=== PATIENT | male | born 1945 | race Caucasian/White ===

== ENCOUNTER 2023-05-13 10:03 | Inpatient (IN) ==
--- NOTE | 2023-05-13 10:27 | Emergency Department Note ---
History of Present Illness General Chief complaint: Fall Stated complaint: FALL Time Seen by Provider: 05/13/23 10:10 History of Present Illness 78-year-old male presents emergency department with reported fall last evening. Patient states that he fell around 3 AM last night he did not hit his head. Patient was unable to get up. His [id number] found him at approximately 9 AM on the floor. Reportedly was not acting appropriately. He has had multiple falls recently. Patient had severe weakness and was unable to get up. Patient's had a prior stroke with left-sided deficits he states he uses a cane at times. Patient denies any headache nausea vomiting abdominal pain chest pain shortness of breath. Patient's family states that he reportedly has not been taking his medications appropriately. Home Medications Medication Instructions Recorded Confirmed Type apixaban 5 mg tablet (Eliquis) 5 mg PO BID 08/24/22 08/24/22 History aspirin 81 mg tablet,delayed 81 mg PO DAILY 08/24/22 08/24/22 History release atorvastatin 80 mg tablet 80 mg PO HS 08/24/22 08/24/22 History cefdinir 300 mg capsule 300 mg PO Q12H 08/24/22 08/24/22 History insulin lispro 100 unit/mL 6 unit subcut TID 08/24/22 08/24/22 History subcutaneous solution metformin 500 mg tablet,extended 1,000 mg PO BID 08/24/22 08/24/22 History release 24 hr pantoprazole 40 mg tablet,delayed 40 mg PO DAILY 08/24/22 08/24/22 History release rosuvastatin 10 mg tablet 10 mg PO QAM 08/24/22 08/24/22 History sertraline 100 mg tablet 100 mg PO DAILY 08/24/22 08/24/22 History Allergies Allergy/AdvReac Type Severity Reaction Status Date / Time No Known Allergies Allergy Unverified 08/24/22 15:39 Past Med/Surg History Social History Smoking Status: Never smoker Feels Safe at Home: Yes Immunizations: Past medical history includes CVA, diabetes Review of Systems A total of 10 systems reviewed and were otherwise negative Constitutional: + weakness Physical Exam Vital Signs Vital Signs - 24 hr 05/13/23 10:06 05/13/23 10:17 05/13/23 10:17 Temperature 37.1 C Temperature Source Oral Pulse Rate 99 H Pulse Rate [Apical] Pulse Rhythm Regular Pulse Strength Normal Respiratory Rate 20 Respiratory Effort / Characteristics Non-Labored Respiratory Depth Normal Respiratory Pattern Regular Blood Pressure [Left Arm] 116/66 Blood Pressure Mean [Left Arm] 82 Blood Pressure Position [Left Arm] Semi-fowlers Pulse Oximetry 94 94 Oxygen Delivery Method Room Air Room Air Sepsis Recent Fever Within 48 Hours No Sepsis New/Unexplained Change in Mental Status N/A Sepsis Action Taken by Nursing No Action Required 05/13/23 11:25 05/13/23 12:11 05/13/23 12:13 Temperature Temperature Source Pulse Rate 90 Pulse Rate [Apical] 88 90 Pulse Rhythm Pulse Strength Respiratory Rate 21 Respiratory Effort / Characteristics Respiratory Depth Respiratory Pattern Blood Pressure [Left Arm] 139/97 115/66 Blood Pressure Mean [Left Arm] 111 82 Blood Pressure Position [Left Arm] Pulse Oximetry 94 95 Oxygen Delivery Method Room Air Room Air Sepsis Recent Fever Within 48 Hours Sepsis New/Unexplained Change in Mental Status Sepsis Action Taken by Nursing GENERAL: Patient is awake alert in no acute distress patient is resting comfo rtably and showing no signs of anxiety EYES: The conjunctivae are clear. The pupils are round and reactive. Head exam reveals no obvious trauma EARS, NOSE, MOUTH AND THROAT: The nose is without any evidence of any deformity. Mucous membranes are moist. Tongue is midline. NECK: The neck is nontender and supple. RESPIRATORY: Normal respiratory effort is noted there is no evidence of wheezing rhonchi or rales CARDIOVASCULAR: Regular rate and rhythm noted there no murmurs rubs or gallops normal S1 normal S2. GASTROINTESTINAL: The abdomen is soft. Abdomen is nontender. PELVIS: The Pelvis is stable. No tenderness to palpation is noted. BACK: No midline tenderness or or step-off noted range of motion in flexion extension as well as rotation no signs of muscle spasm noted MUSCULOSKELETAL/EXTREMITIES: There is no evidence of gross deformity full range of motion is noted in the hips and shoulders. SKIN: There is no obvious evidence of any rash. There are no petechiae, pallor or cyanosis noted. NEUROLOGIC: Patient is awake alert and oriented x3 strength is symmetric Course Reevaluation(s) Reevaluation #1: Patient was started on IV fluids, given IV Rocephin Time: 13:10 Consultations Consultation #1: Case was discussed with the [facility] hospitalist for admission Time: 13:10 Administered Medications Discontinued Medications Sodium Chloride (Nss 1000ml) 1,000 mls @ 999 mls/hr IV .Q1H1M ONE Stop: 05/13/23 11:49 Last Infusion: 05/13/23 12:56 Dose: 0 mls/hr Documented By: Admin: 05/13/23 11:32 Dose: 999 mls/hr Documented By: Infusion: 05/13/23 11:32 Dose: 999 mls/hr Documented By: Admin: 05/13/23 11:12 Dose: 999 mls/hr Documented By: ML Ceftriaxone Sodium (Rocephin) 2,000 mg in 70 mls @ 140 mls/hr IV NOW STA Stop: 05/13/23 11:54 Last Infusion: 05/13/23 12:12 Dose: 0 mls/hr Documented By: Admin: 05/13/23 11:33 Dose: 140 mls/hr Documented By: ML Sodium Chloride (Nss 1000ml) 2,000 mls @ 999 mls/hr IV .Q2H1M ONE Stop: 05/13/23 13:27 Last Infusion: 05/13/23 13:42 Dose: 0 mls/hr Documented By: Admin: 05/13/23 11:33 Dose: 999 mls/hr Documented By: ML Critical Care Time Critical Care Time: Yes Total Critical Care Time: 35 I have personally spent greater than 35 minutes of critical care time in the direct management of this patient. This includes bedside care, interpretation of diagnostic studies, and testing, discussion with consultants, patient, and family members, and other required patient management activities. These minutes are in excess of all separately billable procedures. Medical Decision Making Medical Records Attestation: I reviewed the patient's medical records. Home Medications Current Medication List: was personally reviewed by me Laboratory Data Attestation: I reviewed the patient's lab results. Patient has an elevated white blood cell count elevated blood sugar and elevated lactate concerning for sepsis, a positive urinalysis 05/13/23 10:15 05/13/23 10:15 Lab Results 05/13/23 05/13/23 05/13/23 Range/Units 10:15 10:15 10:15 WBC 22.92 H (4.8-10.8) K/ul RBC 5.26 (4.70-6.10) M/uL Hgb 16.3 (14.0-18.0) g/dl Hct 45.5 (42.0-52.0) % MCV 86.5 (80.0-100.0) fL MCH 31.0 (25.0-34.0) pg MCHC 35.8 (32.0-36.0) g/dL RDW Std Deviation 38.0 (36.4-46.3) fL RDW Coeff of Camila 12.1 (11.5-14.5) % Plt Count 236 (130-400) K/uL MPV 10.7 (9.4-12.4) fL Immature Gran % (Auto) 2.2 % Neut % (Auto) 85.1 % Lymph % (Auto) 4.1 % [place] % (Auto) 8.2 % Eos % (Auto) 0.1 % Baso % (Auto) 0.3 % Neut # (Auto) 19.47 H (1.40-6.50) K/uL Lymph # (Auto) 0.94 L (1.2-3.4) K/uL [place] # (Auto) 1.89 H (0.11-0.59) K/uL Eos # (Auto) 0.03 (0-0.50) K/uL Baso # (Auto) 0.08 (0-0.2) K/uL Immature Gran # (Auto) 0.51 H (0.01-0.20) K/uL PT 13.0 H (9.0-12.0) Seconds INR 1.2 H (0.9-1.1) Sodium 135 L (136-145) mmol/L Potassium 4.4 (3.5-5.1) mmol/L Chloride 99 (98-107) mmol/L Carbon Dioxide 22 (21-32) mmol/L Anion Gap 14 H (3-11) BUN 22 (6-23) mg/dl Creatinine 1.29 (0.6-1.4) mg/dl Est Cr Clr Drug Dosing 48.7 ml/min Est GFR ( Amer) 61.1 ml/min Est GFR (Non-Af Amer) 52.8 ml/min BUN/Creatinine Ratio 17.1 (10-20) Glucose 327 H* (70-99(Fasting)) mg/dl Lactate (0.4-2.0) mmol/L Calcium 10.0 (8.6-10.3) mg/dl Magnesium 1.7 (1.7-2.4) mg/dl Total Bilirubin 2.2 H (0.2-1.0) mg/dl AST 18 (13-39) U/L ALT 14 (7-52) U/L Alkaline Phosphatase 87 (34-104) U/L Total Creatine Kinase 112 (30-223) U/L Troponin I High Sens 28.4 H (0-20) pg/ml Total Protein 7.1 (6.0-8.3) gm/dl Albumin 4.4 (3.4-5.0) gm/dl Globulin 2.7 (2.5-4.0) gm/dl Albumin/Globulin Ratio 1.6 (0.9-2) TSH (0.300-4.500) uIu/ml Urine Color Urine Appearance (Clear) Urine pH (4.5-7.5) Ur Specific [place] (1.000-1.030) Urine Protein (Negative) Urine Glucose (UA) (Negative) Urine Ketones (Negative) Urine Blood (Negative) Urine Nitrite (Negative) Urine Bilirubin (Negative) Urine Urobilinogen (Negative) Ur Leukocyte Esterase (Negative) Urine WBC (Auto) (0-5) /hpf Urine RBC (Auto) (0-4) /hpf U Hyaline Cast (Auto) (0-5) /lpf U Epithel Cells (Auto) (0-5) /lpf Urine Bacteria (Auto) (Negative) Urine Yeast 05/13/23 05/13/23 05/13/23 Range/Units 10:15 10:30 11:07 WBC (4.8-10.8) K/ul RBC (4.70-6.10) M/uL Hgb (14.0-18.0) g/dl Hct (42.0-52.0) % MCV (80.0-100.0) fL MCH (25.0-34.0) pg MCHC (32.0-36.0) g/dL RDW Std Deviation (36.4-46.3) fL RDW Coeff of Camila (11.5-14.5) % Plt Count (130-400) K/uL MPV (9.4-12.4) fL Immature Gran % (Auto) % Neut % (Auto) % Lymph % (Auto) % [place] % (Auto) % Eos % (Auto) % Baso % (Auto) % Neut # (Auto) (1.40-6.50) K/uL Lymph # (Auto) (1.2-3.4) K/uL [place] # (Auto) (0.11-0.59) K/uL Eos # (Auto) (0-0.50) K/uL Baso # (Auto) (0-0.2) K/uL Immature Gran # (Auto) (0.01-0.20) K/uL PT (9.0-12.0) Seconds INR (0.9-1.1) Sodium (136-145) mmol/L Potassium (3.5-5.1) mmol/L Chloride (98-107) mmol/L Carbon Dioxide (21-32) mmol/L Anion Gap (3-11) BUN (6-23) mg/dl Creatinine (0.6-1.4) mg/dl Est Cr Clr Drug Dosing ml/min Est GFR ( Amer) ml/min Est GFR (Non-Af Amer) ml/min BUN/Creatinine Ratio (10-20) Glucose (70-99(Fasting)) mg/dl Lactate 4.0 H* (0.4-2.0) mmol/L Calcium (8.6-10.3) mg/dl Magnesium (1.7-2.4) mg/dl Total Bilirubin (0.2-1.0) mg/dl AST (13-39) U/L ALT (7-52) U/L Alkaline Phosphatase (34-104) U/L Total Creatine Kinase (30-223) U/L Troponin I High Sens (0-20) pg/ml Total Protein (6.0-8.3) gm/dl Albumin (3.4-5.0) gm/dl Globulin (2.5-4.0) gm/dl Albumin/Globulin Ratio (0.9-2) TSH 1.072 (0.300-4.500) uIu/ml Urine Color Yellow Urine Appearance Turbid A (Clear) Urine pH 5.5 (4.5-7.5) Ur Specific [place] 1.023 (1.000-1.030) Urine Protein 2+ H (Negative) Urine Glucose (UA) 3+ H (Negative) Urine Ketones 1+ H (Negative) Urine Blood 2+ H (Negative) Urine Nitrite Positive A (Negative) Urine Bilirubin Negative (Negative) Urine Urobilinogen Negative (Negative) Ur Leukocyte Esterase 2+ H (Negative) Urine WBC (Auto) >30 H (0-5) /hpf Urine RBC (Auto) 10-30 H (0-4) /hpf U Hyaline Cast (Auto) 0 (0-5) /lpf U Epithel Cells (Auto) 10-20 H (0-5) /lpf Urine Bacteria (Auto) 4+ H (Negative) Urine Yeast Not Reportable 05/13/23 Range/Units 13:00 WBC (4.8-10.8) K/ul RBC (4.70-6.10) M/uL Hgb (14.0-18.0) g/dl Hct (42.0-52.0) % MCV (80.0-100.0) fL MCH (25.0-34.0) pg MCHC (32.0-36.0) g/dL RDW Std Deviation (36.4-46.3) fL RDW Coeff of Camila (11.5-14.5) % Plt Count (130-400) K/uL MPV (9.4-12.4) fL Immature Gran % (Auto) % Neut % (Auto) % Lymph % (Auto) % [place] % (Auto) % Eos % (Auto) % Baso % (Auto) % Neut # (Auto) (1.40-6.50) K/uL Lymph # (Auto) (1.2-3.4) K/uL [place] # (Auto) (0.11-0.59) K/uL Eos # (Auto) (0-0.50) K/uL Baso # (Auto) (0-0.2) K/uL Immature Gran # (Auto) (0.01-0.20) K/uL PT (9.0-12.0) Seconds INR (0.9-1.1) Sodium (136-145) mmol/L Potassium (3.5-5.1) mmol/L Chloride (98-107) mmol/L Carbon Dioxide (21-32) mmol/L Anion Gap (3-11) BUN (6-23) mg/dl Creatinine (0.6-1.4) mg/dl Est Cr Clr Drug Dosing ml/min Est GFR ( Amer) ml/min Est GFR (Non-Af Amer) ml/min BUN/Creatinine Ratio (10-20) Glucose (70-99(Fasting)) mg/dl Lactate 2.5 H* (0.4-2.0) mmol/L Calcium (8.6-10.3) mg/dl Magnesium (1.7-2.4) mg/dl Total Bilirubin (0.2-1.0) mg/dl AST (13-39) U/L ALT (7-52) U/L Alkaline Phosphatase (34-104) U/L Total Creatine Kinase (30-223) U/L Troponin I High Sens (0-20) pg/ml Total Protein (6.0-8.3) gm/dl Albumin (3.4-5.0) gm/dl Globulin (2.5-4.0) gm/dl Albumin/Globulin Ratio (0.9-2) TSH (0.300-4.500) uIu/ml Urine Color Urine Appearance (Clear) Urine pH (4.5-7.5) Ur Specific [place] (1.000-1.030) Urine Protein (Negative) Urine Glucose (UA) (Negative) Urine Ketones (Negative) Urine Blood (Negative) Urine Nitrite (Negative) Urine Bilirubin (Negative) Urine Urobilinogen (Negative) Ur Leukocyte Esterase (Negative) Urine WBC (Auto) (0-5) /hpf Urine RBC (Auto) (0-4) /hpf U Hyaline Cast (Auto) (0-5) /lpf U Epithel Cells (Auto) (0-5) /lpf Urine Bacteria (Auto) (Negative) Urine Yeast Imaging Data Attestation: I personally reviewed and interpreted this imaging study as follows: My Impression: Chest x-ray interpreted by me as negative for infiltrate CT of the brain per my interpretation negative intracranial hemorrhage Radiologist's Impression: Chest X-Ray 05/13/23 10:13 XR chest 1V portable CLINICAL HISTORY: weakness COMPARISON STUDY: No previous studies for comparison. FINDINGS: There is mild elevation of the left hemidiaphragm. Linear right basilar opacity favors atelectasis. There is no pneumothorax or pleural effusion. Cardiac size is normal. Mediastinal contours are normal. There is no evidence for pulmonary edema. IMPRESSION: No acute cardiopulmonary findings. ACT 112: Negative or not required by law. Electronically signed by: Patel Aldrich M.D. 05/13/2023 10:[address] 05/13/23 10:13 CT OF THE HEAD WITHOUT CONTRAST CLINICAL HISTORY: Fall. COMPARISON STUDY: No previous studies for comparison. CT DOSE: 625.80 mGy.cm TECHNIQUE: Helical axial images of the head were obtained without IV contrast. Automated exposure control was utilized for the study. A dose lowering technique was utilized adhering to the principles of ALARA. FINDINGS: No acute intracranial hemorrhage, midline shift or mass effect is present. Mild ventricular dilatation is due to atrophy. White matter hypodensity suggests small vessel disease. Encephalomalacia within the superior right frontal lobe favors an old infarct. The basal cisterns are patent. No extra- axial collections are present. There are no findings to suggest acute dural sinus thrombosis or acute territorial infarct. No significant calvarial abnormalities are present. Visualized portions of the sinuses and mastoid air cells are clear. IMPRESSION: 1. No acute intracranial findings. Small focus of encephalomalacia within the superior right frontal lobe which favors an old infarct. 2. No calvarial fracture. ACT 112: Negative or not required by law. Electronically signed by: Patel Aldrich M.D. 05/13/2023 12:21 PM Abdomen/Pelvis CT 05/13/23 11:[address] WITHOUT CONTRAST CT DOSE: 987.71 mGy.cm HISTORY: Acute generalized abdominal pain abd pain TECHNIQUE: Multiaxial CT images of the abdomen and pelvis were performed without contrast. A dose lowering technique was utilized adhering to the principles of ALARA. COMPARISON STUDY: None. FINDINGS: Coronary artery calcifications. Mild left hemidiaphragmatic elevation. Subsegmental left basilar atelectasis versus scarring. No pneumatosis or pneumoperitoneum. The unenhanced spleen, pancreas and adrenal glands are unremarkable. The gallbladder and liver are within normal limits. Mild cortical thinning of the kidneys. Bilateral perinephric stranding with mild bilateral hydroureteronephrosis. No urolithiasis. Urinary bladder wall thickening which evaluation in diverticula. Periventricular stranding. Prostatomegaly with mild periprosthetic inflammation. Atherosclerosis of the aorta. No lymphadenopathy identified. Tiny hiatal hernia. There is no bowel obstruction or bowel wall thickening identified. Colonic diverticulosis. Mild to moderate colonic fecal retention. Normal appendix. Tiny fat filled umbilical hernia. No acute fracture. IMPRESSION: 1. Prostatomegaly with evidence of chronic bladder outlet obstruction. Correlate with urinalysis to exclude superimposed cystitis. 2. Mild bilateral hydroureteronephrosis is likely secondary to the outlet obstruction. Ascending infection however could appear similarly. 3. No urolith. 4. No bowel obstruction or bowel wall thickening. 5. Additional findings as above. ACT 112: Negative or not required by law. The above report was generated using voice recognition software. It may contain grammatical, syntax or spelling errors. Electronically signed by: Bulmaro Hinojosa M.D. 05/13/2023 12:50 PM ECG Data Attestation: I personally reviewed and interpreted this ECG as follows: Additional Comments: EKG interpreted by me sinus rhythm rate of [address]-T change occasional PVCs no obvious ST segment elevation or depression normal axis Telemetry was ordered by me, interpreted as normal sinus rhythm rate of 99 MDM Narrative Medical decision making differential diagnosis includes CVA, intracranial hemorrhage, metabolic derangement, electrolyte abnormality, deconditioning Plan is to check labs, EKG, CT External medical records were reviewed by EMS medical report was reviewed by Patient has an elevated lactate elevated white blood cell count and positive urinalysis, patient was started on 3 L of IV fluid due to elevated lactate of 4, patient was given empiric Rocephin 2 g, case was discussed with the hospitalist for admission Patient will be admitted for confusion, falls, severe sepsis Impression & Plan Sepsis, Acute UTI (urinary tract infection), Fall, Acute confusion Discharge Plan Visit Data Patient Disposition: Admitted As Inpatient Forms Stand Alone Forms: My [facility] [employer] Prescriptions Prescriptions: No Action aspirin 81 mg tablet,delayed release (DR/EC) 81 mg PO DAILY atorvastatin 80 mg tablet 80 mg PO HS sertraline 100 mg tablet 100 mg PO DAILY pantoprazole 40 mg tablet,delayed release (DR/EC) 40 mg PO DAILY insulin lispro 100 unit/mL solution 6 unit subcut TID Rx Instructions: Before meals cefdinir 300 mg capsule 300 mg PO Q12H Rx Instructions: X 15 days started 08/11/22 metformin 500 mg tablet extended release 24 hr 1,000 mg PO BID rosuvastatin 10 mg tablet 10 mg PO QAM Eliquis 5 mg tablet 5 mg PO BID Referrals Referrals: Ben Fry MD [Primary Care Provider] -
[2023-05-13 10:48] LABS: Basophils # (auto) 0.08 K/uL (0-0.2); Basophils % (auto) 0.3 %; Eosinophils # (auto) 0.03 K/uL (0-0.50); Eosinophils % (auto) 0.1 %; Hematocrit (blood only) 45.5 % (42.0-52.0); Hemoglobin 16.3 g/dl (14.0-18.0); Immature Granulocytes # (auto) 0.51 K/uL (0.01-0.20); Immature Granulocytes % (auto) 2.2 %; Lymphocytes # (auto) 0.94 K/uL (1.2-3.4); Lymphocytes % (auto) 4.1 %; Mean Corpuscular Hgb Conc 35.8 g/dL (32.0-36.0); Mean Corpuscular Volume 86.5 fL (80.0-100.0); Mean Platelet Volume 10.7 fL (9.4-12.4); Monocytes # (auto) 1.89 K/uL (0.11-0.59); Monocytes % (auto) 8.2 %; Neutrophils # (auto) 19.47 K/uL (1.40-6.50); Neutrophils % (auto) 85.1 %; Platelet Count 236 K/uL (130-400); RDW Coefficient of Variation 12.1 % (11.5-14.5); Red Blood Count 5.26 M/uL (4.70-6.10); White Blood Count 22.92 K/ul (4.8-10.8)
[2023-05-13 10:49] LABS: Appearance Urine Turbid (Clear); Bacteria Urine Automated 4+ (Negative); Bilirubin Urine Negative (Negative); Blood Urine 2+ (Negative); Cast Urine Automated 0 /lpf (0-5); Color Urine Yellow; Glucose Urine UA 3+ (Negative); Ketones Urine 1+ (Negative); Leukocyte Esterase Urine 2+ (Negative); Nitrite Urine Positive (Negative); Protein Urine 2+ (Negative); Specific Gravity Urine 1.023 (1.000-1.030); Urobilinogen Urine Negative (Negative); WBC Urine Automated >30 /hpf (0-5); pH Urine 5.5 (4.5-7.5)
--- NOTE | 2023-05-13 10:56 | XRay Report ---
XR chest 1V portable CLINICAL HISTORY: weakness COMPARISON STUDY: No previous studies for comparison. FINDINGS: There is mild elevation of the left hemidiaphragm. Linear right basilar opacity favors atel ectasis. There is no pneumothorax or pleural effusion. Cardiac size is normal. Mediastinal contours a re normal. There is no evidence for pulmonary edema. IMPRESSION: No acute cardiopulmonary findings. ACT 112: Negative or not required by law. Electronically signed by: Patel Aldrich M.D. 05/13/2023 10:55 AM
[2023-05-13] MEDS: SODIUM CHLORIDE 0.9% 1000ML 1,000 ML IV ONE ×2 (11:12→11:32)
[2023-05-13 11:13] LABS: INR 1.2 (0.9-1.1)
[2023-05-13 11:18] LABS: Albumin Globulin Ratio 1.6 (0.9-2); Albumin Level 4.4 gm/dl (3.4-5.0); BUN Creatinine Ratio 17.1 (10-20); Bilirubin,Total 2.2 mg/dl (0.2-1.0); Creatinine Clr Calc Pharmacy 48.7 ml/min; Est GFR (African American) 61.1 ml/min; Est GFR (Non-African American) 52.8 ml/min; Globulin 2.7 gm/dl (2.5-4.0); Magnesium 1.7 mg/dl (1.7-2.4); Potassium 4.4 mmol/L (3.5-5.1); Total Protein 7.1 gm/dl (6.0-8.3); Troponin I High Sensitivity 28.4 pg/ml (0-20)
--- NOTE | 2023-05-13 11:20 | Electrocardiogram Report ---
Test Reason : Blood Pressure : / mmHG Vent. Rate : 099 BPM Atrial Rate : 099 BPM P-R Int : 144 ms QRS Dur : 070 ms QT Int : 328 ms P-R-T Axes : 077 043 260 degrees QTc Int : 420 ms Sinus rhythm with occasional Premature ventricular complexes and Fusion complexes Abnormal ECG No previous ECGs available Confirmed by Franco Farooq ([id number]) on 05/13/2023 11:19:56 AM Referred By: Confirmed By:Franco Farooq
[2023-05-13] MEDS ORDERED: cefTRIAXone SODIUM 2,000 MG/70 ML BAG IV STA (11:25)
[2023-05-13] MEDS ORDERED: SODIUM CHLORIDE 0.9% 1000ML 2,000 ML IV ONE (11:27)
--- NOTE | 2023-05-13 12:22 | CT Scan Report ---
CT OF THE HEAD WITHOUT CONTRAST CLINICAL HISTORY: Fall. COMPARISON STUDY: No previous studies for comparison. CT DOSE: 625.80 mGy.cm TECHNIQUE: Helical axial images of the head were obtained without IV contrast. Automated exposure con trol was utilized for the study. A dose lowering technique was utilized adhering to the principles o f ALARA. FINDINGS: No acute intracranial hemorrhage, midline shift or mass effect is present. Mild ventricular dilatation is due to atrophy. White matter hypodensity suggests small vessel disease. Encephalomalac ia within the superior right frontal lobe favors an old infarct. The basal cisterns are patent. No ex tra-axial collections are present. There are no findings to suggest acute dural sinus thrombosis or a cute territorial infarct. No significant calvarial abnormalities are present. Visualized portions of the sinuses and mastoid air cells are clear. IMPRESSION: 1. No acute intracranial findings. Small focus of encephalomalacia within the superior right frontal lobe which favors an old infarct. 2. No calvarial fracture. ACT 112: Negative or not required by law. Electronically signed by: Patel Aldrich M.D. 05/13/2023 12:21 PM
--- NOTE | 2023-05-13 12:52 | CT Scan Report ---
ABDOMEN AND PELVIS CT WITHOUT CONTRAST CT DOSE: 987.71 mGy.cm HISTORY: Acute generalized abdominal pain abd pain TECHNIQUE: Multiaxial CT images of the abdomen and pelvis were performed without contrast. A dose lo wering technique was utilized adhering to the principles of ALARA. COMPARISON STUDY: None. FINDINGS: Coronary artery calcifications. Mild left hemidiaphragmatic elevation. Subsegmental left ba silar atelectasis versus scarring. No pneumatosis or pneumoperitoneum. The unenhanced spleen, pancrea s and adrenal glands are unremarkable. The gallbladder and liver are within normal limits. Mild cortical thinning of the kidneys. Bilateral perinephric stranding with mild bilateral hydrourete ronephrosis. No urolithiasis. Urinary bladder wall thickening which evaluation in diverticula. Perive ntricular stranding. Prostatomegaly with mild periprosthetic inflammation. Atherosclerosis of the aor ta. No lymphadenopathy identified. Tiny hiatal hernia. There is no bowel obstruction or bowel wall thickening identified. Colonic divert iculosis. Mild to moderate colonic fecal retention. Normal appendix. Tiny fat filled umbilical hernia . No acute fracture. IMPRESSION: 1. Prostatomegaly with evidence of chronic bladder outlet obstruction. Correlate with urinalysis to e xclude superimposed cystitis. 2. Mild bilateral hydroureteronephrosis is likely secondary to the outlet obstruction. Ascending infe ction however could appear similarly. 3. No urolith. 4. No bowel obstruction or bowel wall thickening. 5. Additional findings as above. ACT 112: Negative or not required by law. The above report was generated using voice recognition software. It may contain grammatical, syntax o r spelling errors. Electronically signed by: Bulmaro Hinojosa M.D. 05/13/2023 12:50 PM
--- NOTE | 2023-05-13 14:10 | History & Physical Report ---
Date of Service May 13, 2023 Assessment & Plan (1) Sepsis: Plan: Presented with increasing weakness mild confusion and noted to have increased white count, increased lactate and UTI on admission Receiving intravenous fluid Blood and urine cultures were sent Received ceftriaxone 2 g in the ER and which will be continued Lactate level has been improving and will monitor Monitor in medical telemetry unit Elevated troponin Initial troponin is minimally high at 28, second set went up to more than 80 will do third set Think is due to sepsis and doubt any ACS (2) Acute UTI (urinary tract infection): Plan: UTI causing sepsis and weakness (3) Fall: (4) Left hemiparesis: Plan: 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 No new symptoms of a stroke No significant injury except has general weakness CT scan of the head is negative for any acute findings We will get PT and OT evaluation (5) Diabetes type 2, controlled: Plan: On metformin We will check hemoglobin A1c Hold metformin for now Continue with SSI (6) HTN (hypertension): Plan: Remains stable and will continue current medications (7) Hyperlipidemia: Plan: Continue statin (8) Atrial fibrillation: Plan: Rate is controlled We will continue current medications and Eliquis DVT prophylaxis Eliquis CODE STATUS Full History of Present Illness Chief Complaint: Weakness with fall early this morning Primary Care Provider: Ben Fry MD He is a 78-year-old male with significant past medical history of stroke with left hemiparesis, type 2 diabetes, atrial fibrillation, cerebrovascular disease status post stroke, hyperlipidemia, hypertension, apparently has had a fall earlier this morning while he was going to the bathroom. He does have weakness involving the left side from prior stroke and he has been feeling weaker for the last few days. He fell when he tried to turn sharply and he was not able to get up by himself until he was found on the floor by his son in the morning was brought into the emergency room. Denies any fever and or chills, any dizziness, palpitation or shortness of breath, any increasing numbness or tingling involving any of the extremities,. any problem with urine or bowel habit. Has been feeling much better in the emergency room and was noted to have increased white count with UA suggestive of infection and increased lactic acid. He was started with intravenous fluid and IV antibiotic with ceftriaxone and was admitted to medical floor for continuation of care. Allergies Allergy/AdvReac Type Severity Reaction Status Date / Time No Known Allergies Allergy Unverified 08/24/22 15:39 Home Medications Medication Instructions Recorded Confirmed Type apixaban 5 mg tablet (Eliquis) 5 mg PO BID 08/24/22 08/24/22 History aspirin 81 mg tablet,delayed 81 mg PO DAILY 08/24/22 08/24/22 History release metformin 500 mg tablet,extended 1,000 mg PO BID 08/24/22 05/13/23 History release 24 hr pantoprazole 40 mg tablet,delayed 40 mg PO DAILY 08/24/22 08/24/22 History release sertraline 100 mg tablet 100 mg PO DAILY 08/24/22 08/24/22 History atorvastatin 40 mg tablet 40 mg PO QAM 05/13/23 05/13/23 History duloxetine 30 mg capsule,delayed 30 mg PO QAM 05/13/23 05/13/23 History release insulin glargine 100 unit/mL (3 20 unit subcut QAM 05/13/23 05/13/23 History mL) subcutaneous pen (Lantus Solostar U-100 Insulin) Past Med/Surg History Social History Smoking Status: Never smoker Feels Safe at Home: Yes Review of Systems Review of Systems: All systems reviewed and are unremarkable except as in H&P Neurologic: History of a stroke with left hemiparesis and generally weak recently Physical Exam Physical Exam: Lying in bed comfortably Constitutional: well developed, well nourished and + ill appearing Eyes: PERRL, conjunctivae normal, anicteric sclerae ENMT: external ear and nose normal, oropharynx normal Neck: trachea midline, no thyromegaly Respiratory: no respiratory distress Auscultation: lungs clear to auscultation bilaterally Cardiovascular: Rate/Rhythm: regular rate and regular rhythm; not tachycardic Heart Sounds: normal S1, normal S2 and + murmur Extremities: no edema Gastrointestinal (Abdomen): Inspection/Auscultation: normal bowel sounds; abdomen not distended Percussion/Palpation: + abdomen tender (Mildly tender hypogastrium) and abdomen soft Musculoskeletal: No acute arthritis involving any of the joint Neurologic: Alert, awake and oriented x3. Generally weak and may have more weakness involving left upper extremity Results & Data Results & Data Vital Signs (Past 12 Hours) Vital Signs Temp Pulse Pulse Resp BP Pulse Ox O2 Del Method 05/13/23 12:13 90 05/13/23 12:11 90 21 115/66 95 Room Air 05/13/23 11:25 88 139/97 94 Room Air 05/13/23 10:17 94 Room Air 05/13/23 10:17 116/66 05/13/23 10:06 37.1 C 99 H 20 94 Room Air Laboratory Results Short CBC 05/13/23 Range/Units 10:15 WBC 22.92 H (4.8-10.8) K/ul Hgb 16.3 (14.0-18.0) g/dl Hct 45.5 (42.0-52.0) % Plt Count 236 (130-400) K/uL BMP 05/13/23 10:15 Sodium 135 L Potassium 4.4 Chloride 99 Carbon Dioxide 22 BUN 22 Creatinine 1.29 Glucose 327 H* Calcium 10.0 Cardiac Enzymes 05/13/23 Range/Units 10:15 Total Creatine Kinase 112 (30-223) U/L Liver Function 05/13/23 Range/Units 10:15 Total Bilirubin 2.2 H (0.2-1.0) mg/dl AST 18 (13-39) U/L ALT 14 (7-52) U/L Alkaline Phosphatase 87 (34-104) U/L Albumin 4.4 (3.4-5.0) gm/dl Urine 05/13/23 Range/Units 10:30 Urine Color Yellow Urine Appearance Turbid A (Clear) Urine pH 5.5 (4.5-7.5) Ur Specific [place] 1.023 (1.000-1.030) Urine Protein 2+ H (Negative) Urine Glucose (UA) 3+ H (Negative) Medications Administered Current Inpatient Medications Ceftriaxone Sodium 2,000 mg/ (Dextrose) 70 mls @ 100 mls/hr IV Q24H [facility]; Protocol Stop: 05/18/23 13:44 Code Status & VTE Plan VTE Prophylaxis Plan VTE Prophylaxis will be ordered: Yes
[2023-05-13] MEDS ORDERED: DEXTROSE 50% 50 ML SYRINGE IV PRN (14:30)
[2023-05-13] MEDS ORDERED: GLUCAGON FOR INJ 1 MG VIAL IM PRN (14:30)
[2023-05-13] MEDS ORDERED: GLUCOSE 10 TAB/TUBE PO PRN (14:30)
[2023-05-13] MEDS ORDERED: GLUCOSE 40% GEL 15 GM TUBE PO PRN (14:30)
[2023-05-13] MEDS ORDERED: CARBOHYDRATES FOR HYPOGLYCEMIA PO PRN (14:30)
[2023-05-13] MEDS: INSULIN ASPART PER UNIT CHARGE SC SCH ×2 (16:46→22:45)
[2023-05-13] MEDS ORDERED: NON-FORMULARY MEDICATION (Insulin Lispro 100 unit/mL solution) SQ SCH (16:48)
[2023-05-13] MEDS: ASPIRIN 81 MG ECTAB PO SCH (18:16)
[2023-05-13] MEDS: SODIUM CHLORIDE 0.9% 1000ML 1,000 ML IV SCH (18:16)
[2023-05-13] MEDS: PANTOprazole 40 MG TAB PO SCH (18:16)
[2023-05-13] MEDS: APIXABAN 5 MG TABLET PO SCH (21:10)
[2023-05-13] MEDS: ATORVASTATIN 40 MG TAB PO SCH (21:10)
[2023-05-14] MEDS: SODIUM CHLORIDE 0.9% 1000ML 1,000 ML IV SCH (02:57)
[2023-05-14] MEDS ORDERED: PNEUMOCOCCAL Polysaccharide Vaccine 25mcg/0.5mL vial/Syr IM ONE (04:45)
[2023-05-14 08:01] LABS: Estimated Average Glucose 246 mg/dl; Hemoglobin A1C 10.2 % (4.5-5.6)
[2023-05-14] MEDS: ASPIRIN 81 MG ECTAB PO SCH (08:06)
[2023-05-14] MEDS: SERTRALINE HCL 100 MG TABLET PO SCH (08:06)
[2023-05-14] MEDS: cefTRIAXone SODIUM 2,000 MG in DEXTROSE 5% 50 ML IV SCH (08:06)
[2023-05-14] MEDS: PANTOprazole 40 MG TAB PO SCH (08:06)
[2023-05-14] MEDS: APIXABAN 5 MG TABLET PO SCH ×2 (08:06→22:06)
[2023-05-14 08:09] LABS: BUN Creatinine Ratio 16.7 (10-20); Calcium 8.4 mg/dl (8.6-10.3); Creatinine Clr Calc Pharmacy 65.5 ml/min; Est GFR (African American) 87.4 ml/min; Est GFR (Non-African American) 75.4 ml/min; Potassium 3.9 mmol/L (3.5-5.1)
[2023-05-14] MEDS: INSULIN ASPART PER UNIT CHARGE SC SCH ×4 (08:12→22:07)
[2023-05-14 08:56] LABS: Basophils # (auto) 0.08 K/uL (0-0.2); Basophils % (auto) 0.5 %; Eosinophils % (auto) 1.3 %; Hematocrit (blood only) 36.8 % (42.0-52.0); Hemoglobin 13.2 g/dl (14.0-18.0); Immature Granulocytes # (auto) 0.08 K/uL (0.01-0.20); Immature Granulocytes % (auto) 0.5 %; Lymphocytes # (auto) 1.81 K/uL (1.2-3.4); Lymphocytes % (auto) 11.4 %; Mean Corpuscular Hemoglobin 31.1 pg (25.0-34.0); Mean Corpuscular Hgb Conc 35.9 g/dL (32.0-36.0); Mean Corpuscular Volume 86.6 fL (80.0-100.0); Mean Platelet Volume 10.9 fL (9.4-12.4); Monocytes # (auto) 1.39 K/uL (0.11-0.59); Monocytes % (auto) 8.8 %; Neutrophils # (auto) 12.32 K/uL (1.40-6.50); Neutrophils % (auto) 77.5 %; Platelet Count 154 K/uL (130-400); RDW Coefficient of Variation 12.2 % (11.5-14.5); RDW Standard Deviation 38.6 fL (36.4-46.3); Red Blood Count 4.25 M/uL (4.70-6.10); White Blood Count 15.88 K/ul (4.8-10.8)
[2023-05-14] MEDS ORDERED: LANTUS PER UNIT CHARGE SC SCH ×2 (09:00→16:30)
[2023-05-14] MEDS ORDERED: ROSUVASTATIN CALCIUM 10 MG TAB PO SCH (09:00)
--- NOTE | 2023-05-14 14:01 | Urology Consultation ---
Date of Consultation May 14, 2023 Assessment & Plan (1) Acute UTI (urinary tract infection): (2) Urinary retention: Plan 78-year-old male admitted with sepsis/UTI. CT abdomen pelvis on arrival demonstrated prostatomegaly with evidence of outlet obstruction, mild bilateral hydronephrosis likely secondary to outlet obstruction and/or ascending infection, no stones noted. Afebrile, hemodynamically stable. Labs reviewed-White count downtrending 22-15.88 today, hemoglobin 13.2, creatinine 0.96. Urine culture preliminary gram-negative bacilli, blood cultures pending. On IV ceftriaxone. Hinojosa catheter intact, draining clear yellow urine. Continue supportive care and antibiotic therapy. Follow cultures and tailor as culture data becomes available. Maintain Hinojosa catheter. Recommend maintaining for 7-10 days for maximum decompression and bladder rest. Can consider addition of tamsulosin. We reviewed the CT findings. He does report a hx of what sounds like a TURP procedure a few years ago. We discussed possible prostate regrowth and that this could be further assessed with cystoscopy as an outpatient. We also discussed follow-up imaging to reassess for resolution of hydronephrosis after the infection has been treated and now that the bladder is decompressed. Will arrange outpatient follow-up for continued care and voiding trial. Urology will sign-off. Please contact us with any further questions, concerns, or changes in patient status. Case discussed with Dr. Mckeon. History of Present Illness Attending Physician: Joaquin Avina MD History of Present Illness 78-year-old male withsignificant past medical history of stroke with left hemiparesis, type 2 diabetes, atrial fibrillation, cerebrovascular disease status post stroke, hyperlipidemia, hypertension who presented with weakness and altered mental status admitted with sepsis, UTI. On arrival he was afebrile and hemodynamically stable. Labs show a leukocytosis of 22 and creatinine normal. Urinalysis suggestive of infection. CT abdomen pelvis- 1. Prostatomegaly with evidence of chronic bladder outlet obstruction. Correlate with urinalysis to exclude superimposed cystitis. 2. Mild bilateral hydroureteronephrosis is likely secondary to the outlet obstruction. Ascending infection however could appear similarly. 3. No urolith. 4. No bowel obstruction or bowel wall thickening. 5. Additional findings as above. Pt examined at bedside today. Awake, resting in bed on arrival. No acute distress. Hinojosa catheter intact, draining clear yellow urine. Denies any pain or discomfort. Denies fevers, chills, nausea, vomiting. Prior to this, he felt he was empyting his bladder without issue. He does report a hx of what sounds like a TURP procedure in 2020 at [place] in [place]. States he is not currently following with a urologist. Allergies Allergy/AdvReac Type Severity Reaction Status Date / Time No Known Allergies Allergy Unverified 08/24/22 15:39 Home Medications Medication Instructions Recorded Confirmed Type apixaban 5 mg tablet (Eliquis) 5 mg PO BID 08/24/22 08/24/22 History aspirin 81 mg tablet,delayed 81 mg PO DAILY 08/24/22 08/24/22 History release metformin 500 mg tablet,extended 1,000 mg PO BID 08/24/22 05/13/23 History release 24 hr pantoprazole 40 mg tablet,delayed 40 mg PO DAILY 08/24/22 08/24/22 History release sertraline 100 mg tablet 100 mg PO DAILY 08/24/22 08/24/22 History atorvastatin 40 mg tablet 40 mg PO QAM 05/13/23 05/13/23 History duloxetine 30 mg capsule,delayed 30 mg PO QAM 05/13/23 05/13/23 History release insulin glargine 100 unit/mL (3 20 unit subcut QAM 05/13/23 05/13/23 History mL) subcutaneous pen (Lantus Solostar U-100 Insulin) Patient History Social History Smoking Status: Never smoker Hx Alcohol Use: Yes Alcohol type: beer, wine and hard liquor Hx Substance Use: No Preferred Language: Kyrgyz Communication Ability: Effective Telephone Interceptor Operator Required: No Beliefs That Will Affect Care: None Current Living Situation: Alone Current Living Situation Comment: Pt. reports sister offered to take him to her home to live Other Information That Helps Us Care for You: No Feels Safe at Home: Yes Safety Concerns: Feels Safe At This Time Assistive Devices: Cane and Walker Assistive Devices Comment: walker/cane not with pt. Review of Systems Review of Systems: All systems reviewed & are unremarkable except as noted in HPI & below Physical Exam Constitutional: + ill appearing; no acute distress Respiratory: normal respiratory effort; no respiratory distress and no labored breathing Musculoskeletal: Head/Neck/Chest: normocephalic Skin: No visible rashes or lesions to exposed skin areas Neurologic: awake Psychiatric: Orientation: alert and cooperative Forgetful Genitourinary: Hinojosa intact, draining clear yellow urine Results & Data Vital Signs (Past 12 Hours) Vital Signs Temp Pulse Pulse Pulse Resp BP Pulse Ox 05/14/23 13:38 36.4 C L 109 H 20 96 05/14/23 11:40 37.4 C 65 18 124/65 95 05/14/23 08:00 05/14/23 07:22 36.8 C 82 18 104/60 96 05/14/23 07:14 80 05/14/23 03:05 36.9 C 69 18 141/72 H 94 05/14/23 03:01 37.1 C 92 H 18 133/69 97 O2 Del Method 05/14/23 13:38 Room Air 05/14/23 11:40 Room Air 05/14/23 08:00 Room Air 05/14/23 07:22 Room Air 05/14/23 07:14 05/14/23 03:05 Room Air 05/14/23 03:01 Room Air PG Care Time/CCT Total # of Minutes Spent Total Time Spent with Patient: Total time spent is greater than 50% in coordination of care (as documented) at patient's floor/unit and/or counseling patient: Coding Level of Care Code 71343 INT INP/OBS CARE 2/55MIN Diagnoses Acute UTI (urinary tract infection) N39.0 Urinary retention R33.9
[2023-05-14] MEDS ORDERED: PHARMACY GLYCEMIC MGMT CONSULT PRN (14:47)
[2023-05-14] MEDS ORDERED: MAGNESIUM HYDROXIDE SUSP 30 ML UDC PO ONE (15:08)
--- NOTE | 2023-05-14 15:08 | Hospitalist Progress Note ---
Date of Service May 14, 2023 Assessment & Plan (1) Sepsis: Plan: Presented with increasing weakness mild confusion and noted to have increased white count, increased lactate and UTI on admission Urine culture growing gram-negative bacilli Blood culture no growth in [address] abdomen pelvis reviewed personally; prostatomegaly with evidence of chronic bladder outlet obstruction. Continue on ceftriaxone. We will follow-up on final culture and sensitivity. will appreciate urology input regarding prostatomegaly and bladder outlet obstruction. Elevated troponin likely due to demand ischemia Initial troponin is minimally high at 28, second set went up to more than 80 will do third set; down trended. Secondary to sepsis. (2) Acute UTI (urinary tract infection): Plan: UTI causing sepsis and weakness (3) Fall: (4) Left hemiparesis: Plan: 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 No new symptoms of a stroke No significant injury except has general weakness CT scan of the head is negative for any acute findings PT OT eval. (5) Diabetes type 2, controlled: Plan: On metformin A1c greater than 10. Hold metformin for now Continue with [facility] Pharmacy consulted (6) HTN (hypertension): Plan: Remains stable and will continue current medications (7) Hyperlipidemia: Plan: Continue statin (8) Atrial fibrillation: Plan: Rate is controlled We will continue current medications and Eliquis DVT prophylaxis Eliquis CODE STATUS Chief Contract Officer spent evaluating patient, direct bedside care, chart review, placing orders, interpretation of diagnostic studies, discussion with consultants, patient, and family members, as well as other required patient management activities is 60 minutes Please note the above document was generated using voice recognition software. It may contain grammatical, syntax or spelling errors. Any formal questions or concerns about the content, text or information contained within the body of this dictation should be directly addressed to the provider for clarification Admission and Anticipated Discharge Date Admission Date: May 13, 2023 Subjective Patient seen and examined at bedside. He is lying on the bed comfortably; not in any distress. Review of Systems Review of Systems: All systems reviewed & are unremarkable except as noted in Subjective Physical Exam Physical Exam: Constitutional: AOx3; not in distress. Respiratory: normal respiratory effort, lungs clear to auscultation, no wheeze, rales, rhonchi. Normal insp/exp effort, no accessory muscle use Cardiovascular: RRR, no murmur, no edema Vessels: no JVD or carotid bruit Chest: normal inspection of chest Abdomen: normal bowel sounds, soft, nontender, no hepatosplenomegaly. Hinojosa in place draining clear urine Musculoskeletal: no cyanosis or clubbing, extremities motor strength 5/5 Skin: no rashes, warm and dry normal turgor Neurologic: PERRL, EOMI, accommodation nl, no face palsy, no dysarthria CN's II- XI intact bilaterally and moves all extremities Psychiatric: A+Ox3, euthymic affect Constitutional: well developed, well nourished and + ill appearing Eyes: PERRL, conjunctivae normal, anicteric sclerae ENMT: external ear and nose normal, oropharynx normal Neck: trachea midline, no thyromegaly Respiratory: no respiratory distress Auscultation: lungs clear to auscultation bilaterally Cardiovascular: Rate/Rhythm: regular rate and regular rhythm; not tachycardic Heart Sounds: normal S1, normal S2 and + murmur Extremities: no edema Gastrointestinal (Abdomen): Inspection/Auscultation: normal bowel sounds; abdomen not distended Percussion/Palpation: + abdomen tender (Mildly tender hypogastrium) and abdomen soft Musculoskeletal: No acute arthritis involving any of the joint Neurologic: Alert, awake and oriented x3. Generally weak and may have more weakness involving left upper extremity Results & Data Results & Data Vital Signs (Past 12 Hours) Vital Signs Temp Pulse Pulse Pulse Resp BP Pulse Ox 05/14/23 13:38 36.4 C L 109 H 20 96 05/14/23 11:40 37.4 C 65 18 124/65 95 05/14/23 08:00 05/14/23 07:22 36.8 C 82 18 104/60 96 05/14/23 07:14 80 05/14/23 03:05 36.9 C 69 18 141/72 H 94 O2 Del Method 05/14/23 13:38 Room Air 05/14/23 11:40 Room Air 05/14/23 08:00 Room Air 05/14/23 07:22 Room Air 05/14/23 07:14 05/14/23 03:05 Room Air Laboratory Results Laboratory Results WBC 15.88 K/ul (4.8-10.8) H 05/14/23 07:09 RBC 4.25 M/uL (4.70-6.10) L 05/14/23 07:09 Hgb 13.2 g/dl (14.0-18.0) L D 05/14/23 07:09 Hct 36.8 % (42.0-52.0) L 05/14/23 07:09 MCV 86.6 fL (80.0-100.0) 05/14/23 07:09 MCH 31.1 pg (25.0-34.0) 05/14/23 07:09 MCHC 35.9 g/dL (32.0-36.0) 05/14/23 07:09 RDW Std Deviation 38.6 fL (36.4-46.3) 05/14/23 07:09 RDW Coeff of Camila 12.2 % (11.5-14.5) 05/14/23 07:09 Plt Count 154 K/uL (130-400) 05/14/23 07:09 MPV 10.9 fL (9.4-12.4) 05/14/23 07:09 Immature Gran % (Auto) 0.5 % 05/14/23 07:09 Neut % (Auto) 77.5 % 05/14/23 07:09 Lymph % (Auto) 11.4 % 05/14/23 07:09 [place] % (Auto) 8.8 % 05/14/23 07:09 Eos % (Auto) 1.3 % 05/14/23 07:09 Baso % (Auto) 0.5 % 05/14/23 07:09 Neut # (Auto) 12.32 K/uL (1.40-6.50) H 05/14/23 07:09 Lymph # (Auto) 1.81 K/uL (1.2-3.4) 05/14/23 07:09 [place] # (Auto) 1.39 K/uL (0.11-0.59) H 05/14/23 07:09 Eos # (Auto) 0.20 K/uL (0-0.50) 05/14/23 07:09 Baso # (Auto) 0.08 K/uL (0-0.2) 05/14/23 07:09 Immature Gran # (Auto) 0.08 K/uL (0.01-0.20) 05/14/23 07:09 PT 13.0 Seconds (9.0-12.0) H 05/13/23 10:15 INR 1.2 (0.9-1.1) H 05/13/23 10:15 Sodium 135 mmol/L (136-145) L 05/14/23 07:09 Potassium 3.9 mmol/L (3.5-5.1) 05/14/23 07:09 Chloride 108 mmol/L (98-107) H 05/14/23 07:09 Carbon Dioxide 22 mmol/L (21-32) 05/14/23 07:09 Anion Gap 5 (3-11) 05/14/23 07:09 BUN 16 mg/dl (6-23) 05/14/23 07:09 Creatinine 0.96 mg/dl (0.6-1.4) D 05/14/23 07:09 Est Cr Clr Drug Dosing 65.5 ml/min 05/14/23 07:09 Est GFR ( Amer) 87.4 ml/min 05/14/23 07:09 Est GFR (Non-Af Amer) 75.4 ml/min 05/14/23 07:09 BUN/Creatinine Ratio 16.7 (10-20) 05/14/23 07:09 Glucose 210 mg/dl (70-99(Fasting)) H 05/14/23 07:09 POC Glucose 275 mg/dl (70-99) H 05/14/23 11:20 Estimat Average Glucose 246 mg/dl 05/14/23 07:09 Hemoglobin A1c 10.2 % (4.5-5.6) H 05/14/23 07:09 Lactate 2.7 mmol/L (0.4-2.0) H* 05/13/23 18:45 Calcium 8.4 mg/dl (8.6-10.3) L 05/14/23 07:09 Magnesium 1.7 mg/dl (1.7-2.4) 05/13/23 10:15 Total Bilirubin 2.2 mg/dl (0.2-1.0) H 05/13/23 10:15 AST 18 U/L (13-39) 05/13/23 10:15 ALT 14 U/L (7-52) 05/13/23 10:15 Alkaline Phosphatase 87 U/L (34-104) 05/13/23 10:15 Total Creatine Kinase 112 U/L (30-223) 05/13/23 10:15 Troponin I High Sens 64.6 pg/ml (0-20) H* D 05/14/23 00:51 Total Protein 7.1 gm/dl (6.0-8.3) 05/13/23 10:15 Albumin 4.4 gm/dl (3.4-5.0) 05/13/23 10:15 Globulin 2.7 gm/dl (2.5-4.0) 05/13/23 10:15 Albumin/Globulin Ratio 1.6 (0.9-2) 05/13/23 10:15 TSH 1.072 uIu/ml (0.300-4.500) 05/13/23 10:15 Urine Color Yellow 05/13/23 10:30 Urine Appearance Turbid (Clear) A 05/13/23 10:30 Urine pH 5.5 (4.5-7.5) 05/13/23 10:30 Ur Specific [place] 1.023 (1.000-1.030) 05/13/23 10:30 Urine Protein 2+ (Negative) H 05/13/23 10:30 Urine Glucose (UA) 3+ (Negative) H 05/13/23 10:30 Urine Ketones 1+ (Negative) H 05/13/23 10:30 Urine Blood 2+ (Negative) H 05/13/23 10:30 Urine Nitrite Positive (Negative) A 05/13/23 10:30 Urine Bilirubin Negative (Negative) 05/13/23 10:30 Urine Urobilinogen Negative (Negative) 05/13/23 10:30 Ur Leukocyte Esterase 2+ (Negative) H 05/13/23 10:30 Urine WBC (Auto) >30 /hpf (0-5) H 05/13/23 10:30 Urine RBC (Auto) 10-30 /hpf (0-4) H 05/13/23 10:30 U Hyaline Cast (Auto) 0 /lpf (0-5) 05/13/23 10:30 U Epithel Cells (Auto) 10-20 /lpf (0-5) H 05/13/23 10:30 Urine Bacteria (Auto) 4+ (Negative) H 05/13/23 10:30 Urine Yeast Not Reportable 05/13/23 10:30 Impressions Chest X-Ray 05/13/23 10:13 XR chest 1V portable CLINICAL HISTORY: weakness COMPARISON STUDY: No previous studies for comparison. FINDINGS: There is mild elevation of the left hemidiaphragm. Linear right basilar opacity favors atelectasis. There is no pneumothorax or pleural effusion. Cardiac size is normal. Mediastinal contours are normal. There is no evidence for pulmonary edema. IMPRESSION: No acute cardiopulmonary findings. ACT 112: Negative or not required by law. Electronically signed by: Patel Aldrich M.D. 05/13/2023 10:[address] 05/13/23 10:13 CT OF THE HEAD WITHOUT CONTRAST CLINICAL HISTORY: Fall. COMPARISON STUDY: No previous studies for comparison. CT DOSE: 625.80 mGy.cm TECHNIQUE: Helical axial images of the head were obtained without IV contrast. Automated exposure control was utilized for the study. A dose lowering technique was utilized adhering to the principles of ALARA. FINDINGS: No acute intracranial hemorrhage, midline shift or mass effect is present. Mild ventricular dilatation is due to atrophy. White matter hypodensity suggests small vessel disease. Encephalomalacia within the superior right frontal lobe favors an old infarct. The basal cisterns are patent. No extra- axial collections are present. There are no findings to suggest acute dural sinus thrombosis or acute territorial infarct. No significant calvarial abno rmalities are present. Visualized portions of the sinuses and mastoid air cells are clear. IMPRESSION: 1. No acute intracranial findings. Small focus of encephalomalacia within the superior right frontal lobe which favors an old infarct. 2. No calvarial fracture. ACT 112: Negative or not required by law. Electronically signed by: Patel Aldrich M.D. 05/13/2023 12:21 PM Abdomen/Pelvis CT 05/13/23 11:[address] WITHOUT CONTRAST CT DOSE: 987.71 mGy.cm HISTORY: Acute generalized abdominal pain abd pain TECHNIQUE: Multiaxial CT images of the abdomen and pelvis were performed without contrast. A dose lowering technique was utilized adhering to the principles of ALARA. COMPARISON STUDY: None. FINDINGS: Coronary artery calcifications. Mild left hemidiaphragmatic elevation. Subsegmental left basilar atelectasis versus scarring. No pneumatosis or pneumoperitoneum. The unenhanced spleen, pancreas and adrenal glands are u nremarkable. The gallbladder and liver are within normal limits. Mild cortical thinning of the kidneys. Bilateral perinephric stranding with mild bilateral hydroureteronephrosis. No urolithiasis. Urinary bladder wall thickening which evaluation in diverticula. Periventricular stranding. Prostatomegaly with mild periprosthetic inflammation. Atherosclerosis of the aorta. No lymphadenopathy identified. Tiny hiatal hernia. There is no bowel obstruction or bowel wall thickening identified. Colonic diverticulosis. Mild to moderate colonic fecal retention. Normal appendix. Tiny fat filled umbilical hernia. No acute fracture. IMPRESSION: 1. Prostatomegaly with evidence of chronic bladder outlet obstruction. Correlate with urinalysis to exclude superimposed cystitis. 2. Mild bilateral hydroureteronephrosis is likely secondary to the outlet obstruction. Ascending infection however could appear similarly. 3. No urolith. 4. No bowel obstruction or bowel wall thickening. 5. Additional findings as above. ACT 112: Negative or not required by law. The above report was generated using voice recognition software. It may contain grammatical, syntax or spelling errors. Electronically signed by: Bulmaro Hinojosa M.D. 05/13/2023 12:50 PM
--- NOTE | 2023-05-14 15:45 | Pharmacy Report ---
Pharmacy Glycemic Short Note 2 - Date of Service May 14, 2023 - Glycemic Short BSG Results (Last 24 hours): 05/13/23 05/13/23 05/13/23 16:24 18:15 21:25 Glucose POC Glucose 213 H 180 H 147 H 05/14/23 05/14/23 05/14/23 07:09 07:28 11:20 Glucose 210 H POC Glucose 220 H 275 H OUTPATIENT ANTIDIABETIC REGIMEN: * metformin 1000mg BID * Lantus 20 units QAM * Humalog 6 units TID before meals * HbA1c 10.2% 05/16/23 ASSESSMENT: * Maik is a 78 YOM admitted for UTI currently receiving IV ceftriaxone with a history of T2DM, currently uncontrolled. Pharmacy has been consulted for glycemic management while inpatient. * Fasting BSG elevated today, received home dose of Lantus (20 units), will give an additional 10 units of Lantus with dinner and increase to Lantus 30 units QAM tomorrow (may need to be increased further based on fasting BSG) * Receiving IV antibiotics, no other glycemic stressors noted * All BSGs above goal yesterday, will tighten Novolog parameters from a weight based stress of 2 to approximately a weight based stress of 2.5 PLAN FOR INPATIENT GLYCEMIC CONTROL: * Hold outpatient oral diabetes medications * Basal insulin * Additional 10 units of Lantus with dinner, increase to Lantus 30 units QAM (may need further increase based on BSG) * Bolus insulin * NovoLog per scale ACHS or Q6hrs while NPO * Goal Range: Low 110 mg/dL - High 140 mg/dL * Correction Factor: 25 mg/dL/unit * Nutritional / Prandial insulin per carb ratio of 1 unit per 7 grams CHO consumed
[2023-05-14] MEDS: POLYETHYLENE (MIRALAX) 17 GM PACK PO SCH (17:05)
[2023-05-14] MEDS: ATORVASTATIN 40 MG TAB PO SCH (22:06)
[2023-05-15 07:41] LABS: Calcium 8.6 mg/dl (8.6-10.3); Creatinine Clr Calc Pharmacy 67.6 ml/min; Est GFR (African American) 90.8 ml/min; Est GFR (Non-African American) 78.4 ml/min; Potassium 3.6 mmol/L (3.5-5.1)
[2023-05-15] MEDS: INSULIN ASPART PER UNIT CHARGE SC SCH ×4 (08:59→21:22)
[2023-05-15] MEDS ORDERED: LANTUS PER UNIT CHARGE SC SCH ×2 (09:00)
[2023-05-15] MEDS: APIXABAN 5 MG TABLET PO SCH ×2 (09:08→21:22)
[2023-05-15] MEDS: ASPIRIN 81 MG ECTAB PO SCH (09:09)
[2023-05-15] MEDS: SERTRALINE HCL 100 MG TABLET PO SCH (09:10)
[2023-05-15] MEDS: PANTOprazole 40 MG TAB PO SCH (09:11)
[2023-05-15] MEDS: POLYETHYLENE (MIRALAX) 17 GM PACK PO SCH ×2 (09:12→17:53)
[2023-05-15 09:32] LABS: Hematocrit (blood only) 38.4 % (42.0-52.0); Hemoglobin 13.7 g/dl (14.0-18.0); Red Blood Count 4.43 M/uL (4.70-6.10); White Blood Count 10.48 K/ul (4.8-10.8)
[2023-05-15 09:33] LABS: Basophils # (auto) 0.06 K/uL (0-0.2); Basophils % (auto) 0.6 %; Eosinophils % (auto) 2.9 %; Immature Granulocytes # (auto) 0.03 K/uL (0.01-0.20); Immature Granulocytes % (auto) 0.3 %; Lymphocytes # (auto) 1.68 K/uL (1.2-3.4); Mean Corpuscular Hemoglobin 30.9 pg (25.0-34.0); Mean Corpuscular Hgb Conc 35.7 g/dL (32.0-36.0); Mean Corpuscular Volume 86.7 fL (80.0-100.0); Mean Platelet Volume 11.3 fL (9.4-12.4); Monocytes # (auto) 1.02 K/uL (0.11-0.59); Monocytes % (auto) 9.7 %; Neutrophils # (auto) 7.39 K/uL (1.40-6.50); Neutrophils % (auto) 70.5 %; Platelet Count 177 K/uL (130-400); RDW Standard Deviation 38.3 fL (36.4-46.3)
[2023-05-15] MEDS: cefTRIAXone SODIUM 2,000 MG in DEXTROSE 5% 50 ML IV SCH (09:52)
--- NOTE | 2023-05-15 10:00 | Pharmacy Report ---
Pharmacy Glycemic Short Note 2 - Date of Service May 15, 2023 - Glycemic Short BSG Results (Last 24 hours): 05/14/23 05/14/23 05/14/23 11:20 16:38 20:04 Glucose POC Glucose 275 H 148 H 151 H 05/15/23 05/15/23 06:18 07:42 Glucose 95 POC Glucose 111 H OUTPATIENT ANTIDIABETIC REGIMEN: * metformin 1000mg BID * Lantus 20 units QAM * Humalog 6 units TID before meals * HbA1c 10.2% 05/16/23 ASSESSMENT: 05/15/23: * Patient received total of 53 units of insulin yesterday; 30 units of basal + 23 units bolus. * BSGs yesterday were [phone] mg/dl. Fasting BSG today = 95 mg/dl. * 10 units of basal dose was given at dinner yesterday. Will slightly reduce and give 25 units of basal this AM since the 10 units from yesterday is still working for him currently. Re-assess basal dose tomorrow. * Novolog parameters continued the same as last night- post prandial BSG last night was at goal. 05/14/23: * Maik is a 78 YOM admitted for UTI currently receiving IV ceftriaxone with a history of T2DM, currently uncontrolled. Pharmacy has been consulted for glycemic management while inpatient. * Fasting BSG elevated today, received home dose of Lantus (20 units), will give an additional 10 units of Lantus with dinner and increase to Lantus 30 units QAM tomorrow (may need to be increased further based on fasting BSG) * Receiving IV antibiotics, no other glycemic stressors noted * All BSGs above goal yesterday, will tighten Novolog parameters from a weight based stress of 2 to approximately a weight based stress of 2.5 PLAN FOR INPATIENT GLYCEMIC CONTROL: * Hold outpatient oral diabetes medications * Basal insulin * Lantus 25 units SQ QAM. Re-assess dose tomorrow. * Bolus insulin * NovoLog per scale ACHS or Q6hrs while NPO * Goal Range: Low 110 mg/dL - High 140 mg/dL * Correction Factor: 25 mg/dL/unit * Nutritional / Prandial insulin per carb ratio of 1 unit per 7 grams CHO consumed
[2023-05-15] MEDS ORDERED: POTASSIUM CHLORIDE CRTAB 20 MEQ TABCR PO STA (13:10)
[2023-05-15] MEDS: MAGNESIUM SULFATE / D5W 1 GM/100 ML BAG IV SCH ×2 (13:50→16:07)
[2023-05-15] MEDS: METOPROLOL SUCC 25MG EXT REL TAB PO SCH (14:11)
--- NOTE | 2023-05-15 15:30 | Hospitalist Progress Note ---
Date of Service May 15, 2023 Assessment & Plan (1) Sepsis: Plan: Presented with increasing weakness mild confusion and noted to have increased white count, increased lactate and UTI on admission Urine culture growing E.coli; pansensitive Blood culture no growth in [address] abdomen pelvis reviewed personally; prostatomegaly with evidence of chronic bladder outlet obstruction. Continue on ceftriaxone. Plan to treat for 7 to 10 days. Urology recommends maintaining for 7-10 days for maximum decompression and bladder rest Follow up as outpatient. Started on tamsulosin Elevated troponin likely due to demand ischemia Initial troponin is minimally high at 28, second set went up to more than 80 will do third set; down trended. Secondary to sepsis. Frequent PVC, bigeminy. Telemetry shows frequent PVCs, bigeminies . Started on metoprolol 25mg once daily. Echo reviewed from 09/2022; EF of 60-64%. Continue telemetry. (2) Acute UTI (urinary tract infection): Plan: UTI causing sepsis and weakness (3) Fall: (4) Left hemiparesis: Plan: 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 No new symptoms of a stroke No significant injury except has general weakness CT scan of the head is negative for any acute findings PT OT eval recommends rehab (5) Diabetes type 2, controlled: Plan: On metformin A1c greater than 10. Hold metformin for now Continue with [facility] Pharmacy consulted (6) HTN (hypertension): Plan: Remains stable and will continue current medications (7) Hyperlipidemia: Plan: Continue statin (8) Atrial fibrillation: Plan: Rate is controlled We will continue current medications and Eliquis DVT prophylaxis Eliquis CODE STATUS Full PT OT recommends rehab; possible dc over the weekend. Time spent evaluating patient, direct bedside care, chart review, placing orders, interpretation of diagnostic studies, discussion with consultants, patient, and family members, as well as other required patient management activities is 60 minutes Please note the above document was generated using voice recognition software. It may contain grammatical, syntax or spelling errors. Any formal questions or concerns about the content, text or information contained within the body of this dictation should be directly addressed to the provider for clarification Admission and Anticipated Discharge Date Admission Date: May 13, 2023 Subjective Patient comfortable; not in any distress. Reports improvement in weakness. Review of Systems Review of Systems: All systems reviewed & are unremarkable except as noted in Subjective Physical Exam Physical Exam: Constitutional: AOx3; not in distress. Respiratory: normal respiratory effort, lungs clear to auscultation, no wheeze, rales, rhonchi. Normal insp/exp effort, no accessory muscle use Cardiovascular: RRR, no murmur, no edema Vessels: no JVD or carotid bruit Chest: normal inspection of chest Abdomen: normal bowel sounds, soft, nontender, no hepatosplenomegaly. Hinojosa in place draining clear urine Musculoskeletal: no cyanosis or clubbing, extremities motor strength 5/5 Skin: no rashes, warm and dry normal turgor Neurologic: PERRL, EOMI, accommodation nl, no face palsy, no dysarthria CN's II- XI intact bilaterally and moves all extremities Psychiatric: A+Ox3, euthymic affect Results & Data Results & Data Vital Signs (Past 12 Hours) Vital Signs Temp Pulse Pulse Resp BP Pulse Ox O2 Del Method 05/15/23 15:21 36.8 C 85 18 137/64 95 Room Air 05/15/23 11:23 36.6 C 75 16 108/70 96 Room Air 05/15/23 07:53 36.6 C 45 L 16 130/78 97 Room Air Laboratory Results Laboratory Results WBC 10.48 K/ul (4.8-10.8) 05/15/23 06:18 RBC 4.43 M/uL (4.70-6.10) L 05/15/23 06:18 Hgb 13.7 g/dl (14.0-18.0) L 05/15/23 06:18 Hct 38.4 % (42.0-52.0) L 05/15/23 06:18 MCV 86.7 fL (80.0-100.0) 05/15/23 06:18 MCH 30.9 pg (25.0-34.0) 05/15/23 06:18 MCHC 35.7 g/dL (32.0-36.0) 05/15/23 06:18 RDW Std Deviation 38.3 fL (36.4-46.3) 05/15/23 06:18 RDW Coeff of Camila 12.0 % (11.5-14.5) 05/15/23 06:18 Plt Count 177 K/uL (130-400) 05/15/23 06:18 MPV 11.3 fL (9.4-12.4) 05/15/23 06:18 Immature Gran % (Auto) 0.3 % 05/15/23 06:18 Neut % (Auto) 70.5 % 05/15/23 06:18 Lymph % (Auto) 16.0 % 05/15/23 06:18 [place] % (Auto) 9.7 % 05/15/23 06:18 Eos % (Auto) 2.9 % 05/15/23 06:18 Baso % (Auto) 0.6 % 05/15/23 06:18 Neut # (Auto) 7.39 K/uL (1.40-6.50) H 05/15/23 06:18 Lymph # (Auto) 1.68 K/uL (1.2-3.4) 05/15/23 06:18 [place] # (Auto) 1.02 K/uL (0.11-0.59) H 05/15/23 06:18 Eos # (Auto) 0.30 K/uL (0-0.50) 05/15/23 06:18 Baso # (Auto) 0.06 K/uL (0-0.2) 05/15/23 06:18 Immature Gran # (Auto) 0.03 K/uL (0.01-0.20) 05/15/23 06:18 PT 13.0 Seconds (9.0-12.0) H 05/13/23 10:15 INR 1.2 (0.9-1.1) H 05/13/23 10:15 Sodium 138 mmol/L (136-145) 05/15/23 06:18 Potassium 3.6 mmol/L (3.5-5.1) 05/15/23 06:18 Chloride 108 mmol/L (98-107) H 05/15/23 06:18 Carbon Dioxide 24 mmol/L (21-32) 05/15/23 06:18 Anion Gap 6 (3-11) 05/15/23 06:18 BUN 13 mg/dl (6-23) 05/15/23 06:18 Creatinine 0.93 mg/dl (0.6-1.4) 05/15/23 06:18 Est Cr Clr Drug Dosing 67.6 ml/min 05/15/23 06:18 Est GFR ( Amer) 90.8 ml/min 05/15/23 06:18 Est GFR (Non-Af Amer) 78.4 ml/min 05/15/23 06:18 BUN/Creatinine Ratio 14.0 (10-20) 05/15/23 06:18 Glucose 95 mg/dl (70-99(Fasting)) 05/15/23 06:18 POC Glucose 198 mg/dl (70-99) H 05/15/23 11:14 Estimat Average Glucose 246 mg/dl 05/14/23 07:09 Hemoglobin A1c 10.2 % (4.5-5.6) H 05/14/23 07:09 Lactate 2.7 mmol/L (0.4-2.0) H* 05/13/23 18:45 Calcium 8.6 mg/dl (8.6-10.3) 05/15/23 06:18 Magnesium 1.7 mg/dl (1.7-2.4) 05/13/23 10:15 Total Bilirubin 2.2 mg/dl (0.2-1.0) H 05/13/23 10:15 AST 18 U/L (13-39) 05/13/23 10:15 ALT 14 U/L (7-52) 05/13/23 10:15 Alkaline Phosphatase 87 U/L (34-104) 05/13/23 10:15 Total Creatine Kinase 112 U/L (30-223) 05/13/23 10:15 Troponin I High Sens 64.6 pg/ml (0-20) H* D 05/14/23 00:51 Total Protein 7.1 gm/dl (6.0-8.3) 05/13/23 10:15 Albumin 4.4 gm/dl (3.4-5.0) 05/13/23 10:15 Globulin 2.7 gm/dl (2.5-4.0) 05/13/23 10:15 Albumin/Globulin Ratio 1.6 (0.9-2) 05/13/23 10:15 TSH 1.072 uIu/ml (0.300-4.500) 05/13/23 10:15 Urine Color Yellow 05/13/23 10:30 Urine Appearance Turbid (Clear) A 05/13/23 10:30 Urine pH 5.5 (4.5-7.5) 05/13/23 10:30 Ur Specific [place] 1.023 (1.000-1.030) 05/13/23 10:30 Urine Protein 2+ (Negative) H 05/13/23 10:30 Urine Glucose (UA) 3+ (Negative) H 05/13/23 10:30 Urine Ketones 1+ (Negative) H 05/13/23 10:30 Urine Blood 2+ (Negative) H 05/13/23 10:30 Urine Nitrite Positive (Negative) A 05/13/23 10:30 Urine Bilirubin Negative (Negative) 05/13/23 10:30 Urine Urobilinogen Negative (Negative) 05/13/23 10:30 Ur Leukocyte Esterase 2+ (Negative) H 05/13/23 10:30 Urine WBC (Auto) >30 /hpf (0-5) H 05/13/23 10:30 Urine RBC (Auto) 10-30 /hpf (0-4) H 05/13/23 10:30 U Hyaline Cast (Auto) 0 /lpf (0-5) 05/13/23 10:30 U Epithel Cells (Auto) 10-20 /lpf (0-5) H 05/13/23 10:30 Urine Bacteria (Auto) 4+ (Negative) H 05/13/23 10:30 Urine Yeast Not Reportable 05/13/23 10:30 Impressions Chest X-Ray 05/13/23 10:13 XR chest 1V portable CLINICAL HISTORY: weakness COMPARISON STUDY: No previous studies for comparison. FINDINGS: There is mild elevation of the left hemidiaphragm. Linear right basilar opacity favors atelectasis. There is no pneumothorax or pleural effusion. Cardiac size is normal. Mediastinal contours are normal. There is no evidence for pulmonary edema. IMPRESSION: No acute cardiopulmonary findings. ACT 112: Negative or not required by law. Electronically signed by: Patel Aldrich M.D. 05/13/2023 10:[address] 05/13/23 10:13 CT OF THE HEAD WITHOUT CONTRAST CLINICAL HISTORY: Fall. COMPARISON STUDY: No previous studies for comparison. CT DOSE: 625.80 mGy.cm TECHNIQUE: Helical axial images of the head were obtained without IV contrast. Automated exposure control was utilized for the study. A dose lowering technique was utilized adhering to the principles of ALARA. FINDINGS: No acute intracranial hemorrhage, midline shift or mass effect is present. Mild ventricular dilatation is due to atrophy. White matter hypodensity suggests small vessel disease. Encephalomalacia within the superior right frontal lobe favors an old infarct. The basal cisterns are patent. No extra- axial collections are present. There are no findings to suggest acute dural sinus thrombosis or acute territorial infarct. No significant calvarial abnormalities are present. Visualized portions of the sinuses and mastoid air cells are clear. IMPRESSION: 1. No acute intracranial findings. Small focus of encephalomalacia within the superior right frontal lobe which favors an old infarct. 2. No calvarial fracture. ACT 112: Negative or not required by law. Electronically signed by: Patel Aldrich M.D. 05/13/2023 12:21 PM Abdomen/Pelvis CT 05/13/23 11:[address] WITHOUT CONTRAST CT DOSE: 987.71 mGy.cm HISTORY: Acute generalized abdominal pain abd pain TECHNIQUE: Multiaxial CT images of the abdomen and pelvis were performed without contrast. A dose lowering technique was utilized adhering to the principles of ALARA. COMPARISON STUDY: None. FINDINGS: Coronary artery calcifications. Mild left hemidiaphragmatic elevation. Subsegmental left basilar atelectasis versus scarring. No pneumatosis or pneumoperitoneum. The unenhanced spleen, pancreas and adrenal glands are unremarkable. The gallbladder and liver are within normal limits. Mild cortical thinning of the kidneys. Bilateral perinephric stranding with mild bilateral hydroureteronephrosis. No urolithiasis. Urinary bladder wall thickening which evaluation in diverticula. Periventricular stranding. Prostatomegaly with mild periprosthetic inflammation. Atherosclerosis of the aorta. No lymphadenopathy identified. Tiny hiatal hernia. There is no bowel obstruction or bowel wall thickening identified. Colonic diverticulosis. Mild to moderate colonic fecal retention. Normal appendix. Tiny fat filled umbilical hernia. No acute fracture. IMPRESSION: 1. Prostatomegaly with evidence of chronic bladder outlet obstruction. Correlate with urinalysis to exclude superimposed cystitis. 2. Mild bilateral hydroureteronephrosis is likely secondary to the outlet obstruction. Ascending infection however could appear similarly. 3. No urolith. 4. No bowel obstruction or bowel wall thickening. 5. Additional findings as above. ACT 112: Negative or not required by law. The above report was generated using voice recognition software. It may contain grammatical, syntax or spelling errors. Electronically signed by: Bulmaro Hinojosa M.D. 05/13/2023 12:50 PM
[2023-05-15] MEDS ORDERED: TAMSULOSIN HCL 0.4 MG CAP PO SCH (21:00)
[2023-05-15] MEDS: ATORVASTATIN 40 MG TAB PO SCH (21:22)
[2023-05-16 07:01] LABS: Basophils # (auto) 0.06 K/uL (0-0.2); Basophils % (auto) 0.8 %; Eosinophils % (auto) 4.2 %; Hematocrit (blood only) 36.1 % (42.0-52.0); Hemoglobin 13.1 g/dl (14.0-18.0); Immature Granulocytes # (auto) 0.02 K/uL (0.01-0.20); Immature Granulocytes % (auto) 0.3 %; Lymphocytes % (auto) 27.9 %; Mean Corpuscular Hemoglobin 30.7 pg (25.0-34.0); Mean Corpuscular Hgb Conc 36.3 g/dL (32.0-36.0); Mean Corpuscular Volume 84.5 fL (80.0-100.0); Mean Platelet Volume 10.5 fL (9.4-12.4); Monocytes # (auto) 0.83 K/uL (0.11-0.59); Monocytes % (auto) 11.6 %; Neutrophils # (auto) 3.95 K/uL (1.40-6.50); Neutrophils % (auto) 55.2 %; Platelet Count 203 K/uL (130-400); RDW Standard Deviation 37.1 fL (36.4-46.3); Red Blood Count 4.27 M/uL (4.70-6.10); White Blood Count 7.16 K/ul (4.8-10.8)
[2023-05-16 07:20] LABS: BUN Creatinine Ratio 16.9 (10-20); Calcium 8.6 mg/dl (8.6-10.3); Creatinine Clr Calc Pharmacy 70.6 ml/min; Est GFR (African American) 94.9 ml/min; Est GFR (Non-African American) 81.9 ml/min; Potassium 3.9 mmol/L (3.5-5.1)
[2023-05-16] MEDS: APIXABAN 5 MG TABLET PO SCH (08:07)
[2023-05-16] MEDS: ASPIRIN 81 MG ECTAB PO SCH (08:08)
[2023-05-16] MEDS: PANTOprazole 40 MG TAB PO SCH (08:08)
[2023-05-16] MEDS: SERTRALINE HCL 100 MG TABLET PO SCH (08:08)
[2023-05-16] MEDS: METOPROLOL SUCC 25MG EXT REL TAB PO SCH (08:08)
[2023-05-16] MEDS: cefTRIAXone SODIUM 2,000 MG in DEXTROSE 5% 50 ML IV SCH (08:09)
[2023-05-16] MEDS: INSULIN ASPART PER UNIT CHARGE SC SCH ×2 (08:09→12:14)
[2023-05-16] MEDS: POLYETHYLENE (MIRALAX) 17 GM PACK PO SCH (08:10)
[2023-05-16] MEDS ORDERED: LANTUS PER UNIT CHARGE SC SCH (09:00)
--- NOTE | 2023-05-16 12:46 | Hospitalist Progress Note ---
Date of Service May 16, 2023 Assessment & Plan (1) Sepsis: Plan: Presented with increasing weakness mild confusion and noted to have increased white count, increased lactate and UTI on admission Sepsis UTI Chronic bladder outlet obstruction due to prostatomegaly -Urine culture growing E.coli; pansensitive -Blood culture no growth in 48 hours -CT abdomen pelvis:Prostatomegaly with evidence of chronic bladder outlet obstruction. Correlate with urinalysis to exclude superimposed cystitis. Mild bilateral hydroureteronephrosis is likely secondary to the outlet obstruction. Ascending infection however could appear similarly. No urolith. No bowel obstruction or bowel wall thickening. -Continue on ceftriaxone while hospitalized Plan to transition to p.o. antibiotics upon discharge Plan to continue to maintain Hinojosa catheter for 7 to 10 days, voiding trial as outpatient Started on tamsulosin Appreciate urology input Needs follow-up with urology upon discharge Elevated troponin likely due to demand ischemia Secondary to sepsis. Frequent PVC, bigeminy. Started on metoprolol 25mg once daily. Echo reviewed from 09/2022; EF of 60-64%. Monitor (2) Acute UTI (urinary tract infection): Plan: Management as above (3) Fall: Plan: Continue PT OT Rehab as able (4) Left hemiparesis: Plan: H/O left hemiparesis from prior stroke CT scan of the head is negative for any acute findings PT OT eval:recommends rehab (5) Diabetes type 2, controlled: Plan: On metformin HbA1c 10.2 Continue Insulin per protocol Pharmacy consulted (6) HTN (hypertension): Plan: Continue current medication Monitor (7) Hyperlipidemia: Plan: Continue statin (8) Atrial fibrillation: Plan: Rate controlled Continue metoprolol as above On Eliquis for anticoagulation DVT prophylaxis Eliquis CODE STATUS Full Code Disposition Acute rehab Admission and Anticipated Discharge Date Admission Date: May 13, 2023 Subjective Patient is seen and examined at bedside Offers no new complaints States feeling well today Denies any chest pain, dyspnea, dizziness, nausea, abdominal pain Plan to be discharged to rehab facility today Review of Systems Review of Systems: All systems reviewed & are unremarkable except as noted in Subjective Physical Exam Physical Exam: Physical Exam: Vitals signs as noted above General Appearance:Moderately built and nourished, no apparent distress Head: normocephalic, Atraumatic Eyes: normal inspection, EOMI Neck: supple, Trachea midline Respiratory/Chest: Normal breath sounds, CTA, No accessory muscle use Cardiovascular: S1, S2, No murmur Abdomen/GI:Soft, Non tender, Bowel sounds present Extremities/Musculoskeletal:normal inspection, no edema Neurologic/Psych:AAOX3, grossly no focal neurological deficits Skin: normal color, warm Results & Data Results & Data Vital Signs (Past 12 Hours) Vital Signs Temp Pulse Pulse Resp BP Pulse Ox O2 Del Method 05/16/23 11:38 37.0 C 67 18 111/62 96 Room Air 05/16/23 08:43 Room Air 05/16/23 07:24 37.0 C 66 16 131/70 98 Room Air 05/16/23 07:20 71 05/16/23 03:28 37.0 C 65 18 115/68 95 Room Air Laboratory Results Short CBC 05/16/23 Range/Units 06:42 WBC 7.16 (4.8-10.8) K/ul Hgb 13.1 L (14.0-18.0) g/dl Hct 36.1 L (42.0-52.0) % Plt Count 203 (130-400) K/uL BMP 05/16/23 06:42 Sodium 139 Potassium 3.9 Chloride 108 H Carbon Dioxide 25 BUN 15 Creatinine 0.89 Glucose 100 H Calcium 8.6
--- NOTE | 2023-05-16 17:55 | Discharge Summary ---
Date of Service May 16, 2023 Admission HPI Per Admitting Provider He is a 78-year-old male with significant past medical history of stroke with left hemiparesis, type 2 diabetes, atrial fibrillation, cerebrovascular disease status post stroke, hyperlipidemia, hypertension, apparently has had a fall earlier this morning while he was going to the bathroom. He does have weakness involving the left side from prior stroke and he has been feeling weaker for the last few days. He fell when he tried to turn sharply and he was not able to get up by himself until he was found on the floor by his son in the morning was brought into the emergency room. Denies any fever and or chills, any dizziness, palpitation or shortness of breath, any increasing numbness or tingling involving any of the extremities,. any problem with urine or bowel habit. Has been feeling much better in the emergency room and was noted to have increased white count with UA suggestive of infection and increased lactic acid. He was started with intravenous fluid and IV antibiotic with ceftriaxone and was admitted to medical floor for continuation of care. Admission Exam Per Admitting Provider Physical Exam Physical Exam: Lying in bed comfortably Constitutional: well developed, well nourished and + ill appearing Eyes: PERRL, conjunctivae normal, anicteric sclerae ENMT: external ear and nose normal, oropharynx normal Neck: trachea midline, no thyromegaly Respiratory: no respiratory distress Auscultation: lungs clear to auscultation bilaterally Cardiovascular: Rate/Rhythm: regular rate and regular rhythm; not tachycardic Heart Sounds: normal S1, normal S2 and + murmur Extremities: no edema Gastrointestinal (Abdomen): Inspection/Auscultation: normal bowel sounds; abdomen not distended Percussion/Palpation: + abdomen tender (Mildly tender hypogastrium) and abdomen soft Musculoskeletal: No acute arthritis involving any of the joint Neurologic: Alert, awake and oriented x3. Generally weak and may have more weakness involving left upper extremity Principal Diagnosis Sepsis Urinary tract infection Premature ventricular contractions Fall Chronic bladder outlet obstruction Discharge Data Allergies Allergy/AdvReac Type Severity Reaction Status Date / Time No Known Allergies Allergy Unverified 08/24/22 15:39 Consultations 05/13/23 13:09 ED Decision to Admit Stat 05/14/23 08:03 Consult Urology Routine Procedures Performed Laboratory Results WBC 7.16 K/ul (4.8-10.8) 05/16/23 06:42 RBC 4.27 M/uL (4.70-6.10) L 05/16/23 06:42 Hgb 13.1 g/dl (14.0-18.0) L 05/16/23 06:42 Hct 36.1 % (42.0-52.0) L 05/16/23 06:42 MCV 84.5 fL (80.0-100.0) 05/16/23 06:42 MCH 30.7 pg (25.0-34.0) 05/16/23 06:42 MCHC 36.3 g/dL (32.0-36.0) H 05/16/23 06:42 RDW Std Deviation 37.1 fL (36.4-46.3) 05/16/23 06:42 RDW Coeff of Camila 12.0 % (11.5-14.5) 05/16/23 06:42 Plt Count 203 K/uL (130-400) 05/16/23 06:42 MPV 10.5 fL (9.4-12.4) 05/16/23 06:42 Immature Gran % (Auto) 0.3 % 05/16/23 06:42 Neut % (Auto) 55.2 % 05/16/23 06:42 Lymph % (Auto) 27.9 % 05/16/23 06:42 Cuming % (Auto) 11.6 % 05/16/23 06:42 Eos % (Auto) 4.2 % 05/16/23 06:42 Baso % (Auto) 0.8 % 05/16/23 06:42 Neut # (Auto) 3.95 K/uL (1.40-6.50) 05/16/23 06:42 Lymph # (Auto) 2.00 K/uL (1.2-3.4) 05/16/23 06:42 Cuming # (Auto) 0.83 K/uL (0.11-0.59) H 05/16/23 06:42 Eos # (Auto) 0.30 K/uL (0-0.50) 05/16/23 06:42 Baso # (Auto) 0.06 K/uL (0-0.2) 05/16/23 06:42 Immature Gran # (Auto) 0.02 K/uL (0.01-0.20) 05/16/23 06:42 PT 13.0 Seconds (9.0-12.0) H 05/13/23 10:15 INR 1.2 (0.9-1.1) H 05/13/23 10:15 Sodium 139 mmol/L (136-145) 05/16/23 06:42 Potassium 3.9 mmol/L (3.5-5.1) 05/16/23 06:42 Chloride 108 mmol/L (98-107) H 05/16/23 06:42 Carbon Dioxide 25 mmol/L (21-32) 05/16/23 06:42 Anion Gap 6 (3-11) 05/16/23 06:42 BUN 15 mg/dl (6-23) 05/16/23 06:42 Creatinine 0.89 mg/dl (0.6-1.4) 05/16/23 06:42 Est Cr Clr Drug Dosing 70.6 ml/min 05/16/23 06:42 Est GFR ( Amer) 94.9 ml/min 05/16/23 06:42 Est GFR (Non-Af Amer) 81.9 ml/min 05/16/23 06:42 BUN/Creatinine Ratio 16.9 (10-20) 05/16/23 06:42 Glucose 100 mg/dl (70-99(Fasting)) H 05/16/23 06:42 POC Glucose 186 mg/dl (70-99) H 05/16/23 11:24 Estimat Average Glucose 246 mg/dl 05/14/23 07:09 Hemoglobin A1c 10.2 % (4.5-5.6) H 05/14/23 07:09 Lactate 2.7 mmol/L (0.4-2.0) H* 05/13/23 18:45 Calcium 8.6 mg/dl (8.6-10.3) 05/16/23 06:42 Magnesium 1.7 mg/dl (1.7-2.4) 05/13/23 10:15 Total Bilirubin 2.2 mg/dl (0.2-1.0) H 05/13/23 10:15 AST 18 U/L (13-39) 05/13/23 10:15 ALT 14 U/L (7-52) 05/13/23 10:15 Alkaline Phosphatase 87 U/L (34-104) 05/13/23 10:15 Total Creatine Kinase 112 U/L (30-223) 05/13/23 10:15 Troponin I High Sens 64.6 pg/ml (0-20) H* D 05/14/23 00:51 Total Protein 7.1 gm/dl (6.0-8.3) 05/13/23 10:15 Albumin 4.4 gm/dl (3.4-5.0) 05/13/23 10:15 Globulin 2.7 gm/dl (2.5-4.0) 05/13/23 10:15 Albumin/Globulin Ratio 1.6 (0.9-2) 05/13/23 10:15 TSH 1.072 uIu/ml (0.300-4.500) 05/13/23 10:15 Urine Color Yellow 05/13/23 10:30 Urine Appearance Turbid (Clear) A 05/13/23 10:30 Urine pH 5.5 (4.5-7.5) 05/13/23 10:30 Ur Specific Siren 1.023 (1.000-1.030) 05/13/23 10:30 Urine Protein 2+ (Negative) H 05/13/23 10:30 Urine Glucose (UA) 3+ (Negative) H 05/13/23 10:30 Urine Ketones 1+ (Negative) H 05/13/23 10:30 Urine Blood 2+ (Negative) H 05/13/23 10:30 Urine Nitrite Positive (Negative) A 05/13/23 10:30 Urine Bilirubin Negative (Negative) 05/13/23 10:30 Urine Urobilinogen Negative (Negative) 05/13/23 10:30 Ur Leukocyte Esterase 2+ (Negative) H 05/13/23 10:30 Urine WBC (Auto) >30 /hpf (0-5) H 05/13/23 10:30 Urine RBC (Auto) 10-30 /hpf (0-4) H 05/13/23 10:30 U Hyaline Cast (Auto) 0 /lpf (0-5) 05/13/23 10:30 U Epithel Cells (Auto) 10-20 /lpf (0-5) H 05/13/23 10:30 Urine Bacteria (Auto) 4+ (Negative) H 05/13/23 10:30 Urine Yeast Not Reportable 05/13/23 10:30 Impressions Chest X-Ray 05/13/23 10:13 XR chest 1V portable CLINICAL HISTORY: weakness COMPARISON STUDY: No previous studies for comparison. FINDINGS: There is mild elevation of the left hemidiaphragm. Linear right basilar opacity favors atelectasis. There is no pneumothorax or pleural effusion. Cardiac size is normal. Mediastinal contours are normal. There is no evidence for pulmonary edema. IMPRESSION: No acute cardiopulmonary findings. ACT 112: Negative or not required by law. Electronically signed by: Patel Aldrich M.D. 05/13/2023 10:[address] 05/13/23 10:13 CT OF THE HEAD WITHOUT CONTRAST CLINICAL HISTORY: Fall. COMPARISON STUDY: No previous studies for comparison. CT DOSE: 625.80 mGy.cm TECHNIQUE: Helical axial images of the head were obtained without IV contrast. Automated exposure control was utilized for the study. A dose lowering technique was utilized adhering to the principles of ALARA. FINDINGS: No acute intracranial hemorrhage, midline shift or mass effect is present. Mild ventricular dilatation is due to atrophy. White matter hypodensity suggests small vessel disease. Encephalomalacia within the superior right frontal lobe favors an old infarct. The basal cisterns are patent. No extra- axial collections are present. There are no findings to suggest acute dural sinus thrombosis or acute territorial infarct. No significant calvarial abnormalities are present. Visualized portions of the sinuses and mastoid air cells are clear. IMPRESSION: 1. No acute intracranial findings. Small focus of encephalomalacia within the superior right frontal lobe which favors an old infarct. 2. No calvarial fracture. ACT 112: Negative or not required by law. Electronically signed by: Patel Aldrich M.D. 05/13/2023 12:21 PM Abdomen/Pelvis CT 05/13/23 11:[address] WITHOUT CONTRAST CT DOSE: 987.71 mGy.cm HISTORY: Acute generalized abdominal pain abd pain TECHNIQUE: Multiaxial CT images of the abdomen and pelvis were performed without contrast. A dose lowering technique was utilized adhering to the principles of ALARA. COMPARISON STUDY: None. FINDINGS: Coronary artery calcifications. Mild left hemidiaphragmatic elevation. Subsegmental left basilar atelectasis versus scarring. No pneumatosis or pneumoperitoneum. The unenhanced spleen, pancreas and adrenal glands are unremarkable. The gallbladder and liver are within normal limits. Mild cortical thinning of the kidneys. Bilateral perinephric stranding with mild bilateral hydroureteronephrosis. No urolithiasis. Urinary bladder wall thickening which evaluation in diverticula. Periventricular stranding. Prostatomegaly with mild periprosthetic inflammation. Atherosclerosis of the aorta. No lymphadenopathy identified. Tiny hiatal hernia. There is no bowel obstruction or bowel wall thickening identified. Colonic diverticulosis. Mild to moderate colonic fecal retention. Normal appendix. Tiny fat filled umbilical hernia. No acute fracture. IMPRESSION: 1. Prostatomegaly with evidence of chronic bladder outlet obstruction. Correlate with urinalysis to exclude superimposed cystitis. 2. Mild bilateral hydroureteronephrosis is likely secondary to the outlet obstruction. Ascending infection however could appear similarly. 3. No urolith. 4. No bowel obstruction or bowel wall thickening. 5. Additional findings as above. ACT 112: Negative or not required by law. The above report was generated using voice recognition software. It may contain grammatical, syntax or spelling errors. Electronically signed by: Bulmaro Hinojosa M.D. 05/13/2023 12:50 PM Ordered Studies 05/13/23 10:13 CT head/brain wo con Stat 05/13/23 11:52 CT abd pelvis wo con Stat Hospital Course (1) Sepsis: Presented with increasing weakness mild confusion and noted to have increased white count, increased lactate and UTI on admission Sepsis UTI Chronic bladder outlet obstruction due to prostatomegaly -Urine culture growing E.coli; pansensitive -Blood culture no growth in 48 hours -CT abdomen pelvis:Prostatomegaly with evidence of chronic bladder outlet obstruction. Correlate with urinalysis to exclude superimposed cystitis. Mild bilateral hydroureteronephrosis is likely secondary to the outlet obstruction. Ascending infection however could appear similarly. No urolith. No bowel obstruction or bowel wall thickening. -Continue on ceftriaxone while hospitalized Plan to transition to p.o. antibiotics upon discharge Plan to continue to maintain Hinojosa catheter for 7 to 10 days, voiding trial as outpatient Started on tamsulosin Appreciate urology input Needs follow-up with urology upon discharge Elevated troponin likely due to demand ischemia Secondary to sepsis. Frequent PVC, bigeminy. Started on metoprolol 25mg once daily. Echo reviewed from 09/2022; EF of 60-64%. Monitor (2) Acute UTI (urinary tract infection): Management as above (3) Fall: Continue PT OT Rehab as able (4) Left hemiparesis: H/O left hemiparesis from prior stroke CT scan of the head is negative for any acute findings PT OT eval:recommends rehab (5) Diabetes type 2, controlled: On metformin HbA1c 10.2 Continue Insulin per protocol Pharmacy consulted (6) HTN (hypertension): Continue current medication Monitor (7) Hyperlipidemia: Continue statin (8) Atrial fibrillation: Rate controlled Continue metoprolol as above On Eliquis for anticoagulation DVT prophylaxis Eliquis CODE STATUS Full Code Disposition Acute rehab Total Time Total Time Spent Total Time Spent (In Minutes): 55 minutes Discharge Plan Discharge Items Patient Disposition: Transfer Inpatient Rehab Fac Reason For Visit: FALL, UTI Discharge Diagnosis: Sepsis Urinary tract infection Premature ventricular contractions Fall Chronic bladder outlet obstruction Activity: Per Instructions section Exercise/Sports: Gradually increase as tolerated Non-emergency contact: Primary Care Provider Call non-emergency contact if: you have any medication questions, your symptoms worsen, your pain is concerning for you and you have a fever Follow-up/Referrals: Ben Fry MD [Primary Care Provider] - Diet: Carb Consistent or DM2 and Heart Healthy Addtl Attending Provider Instructions: Follow-up with your primary care physician Dr. Perkins in 1 week upon discharge from rehab facility Follow-up with your urologist Dr. Lester Mckeon as advised. --- Complete the antibiotic course (cefdinir) as prescribed. start taking from 05/17/23 --- Continue Hinojosa catheter for 7 more days and follow-up with the urologist for voiding trial --If final blood cultures are pending at the time of discharge. Follow-up with your physician for results. Seek immediate medical attention if your symptoms reoccur or worsen Please take all medications as instructed on discharge list below. Please call if you have any questions or problems. You can reach a [facility] hospitalist on duty at [facility] 24 hours a day by calling [phone] Pending Studies at Discharge: Yes Studies:: Blood Cultures Stand-Alone Forms: My [facility] Skilled Items Patient informed of condition?: Yes DNR: No Discharge Level of Care: Acute rehab Communicable Disease: No Discharge Prognosis: Stable Lines: None Urinary Catheter: Yes Medications and DC Order Prescriptions: New tamsulosin 0.4 mg Capsule 0.4 mg PO HS Qty: 30 1RF metoprolol succinate 25 mg Tablet Extended Release 24 Hr 25 mg PO QAM Qty: 30 1RF Advanced Probiotic 625 mg (10 billion cell) Capsule 2 cap PO DAILY Qty: 30 0RF cefdinir 300 mg capsule 300 mg PO BID Qty: 14 0RF Rx Instructions: start taking from 05/17/23 Continued aspirin 81 mg tablet,delayed release (DR/EC) 81 mg PO DAILY sertraline 100 mg tablet 100 mg PO DAILY pantoprazole 40 mg tablet,delayed release (DR/EC) 40 mg PO DAILY metformin 500 mg tablet extended release 24 hr 1,000 mg PO BID Eliquis 5 mg tablet 5 mg PO BID atorvastatin 40 mg tablet 40 mg PO QAM duloxetine 30 mg capsule,delayed release(DR/EC) 30 mg PO QAM insulin glargine [Lantus Solostar U-100 Insulin] 100 unit/mL (3 mL) insulin pen 20 unit SUBCUT QAM Discharge Orders: Discharge Order (Routine); Ordered 05/16/23 Ordered By: Lars Russo/Other Patient Handouts: High Blood Sugar (Hyperglycemia), Hypoglycemia (Low Blood Sugar) Admission Data Admit Date/Time: 05/13/23 13:47 Attending Provider: Lars Olmos Admit Provider: Alfred Elias Primary Care Provider: Ben Fry Other Providers: Alfred Elias ; Sigifredo Esparza ; [facility]
[2023-05-17] MEDS ORDERED: ADVANCED PROBIOTIC 1250 MG CAPSULE PO SCH (09:00)
== END 2023-05-16 13:54 | DRG 872 ==
LOC: ED 10:03 → EDINP 13:47 → SUATTDRO 13:47 → EDINP 16:48 → 2W 20:41
DX: I69.354 Hemiplegia and hemiparesis following cerebral infarction affecting left non-dominant side; E78.5 Hyperlipidemia, unspecified; Z79.01 Long term (current) use of anticoagulants; Z79.4 Long term (current) use of insulin; E11.9 Type 2 diabetes mellitus without complications; A41.51 Sepsis due to Escherichia coli [E. coli]; Z79.82 Long term (current) use of aspirin; R41.0 Disorientation, unspecified; N13.8 Other obstructive and reflux uropathy; I48.91 Unspecified atrial fibrillation; I24.8 Other forms of acute ischemic heart disease; I49.3 Ventricular premature depolarization; N40.1 Benign prostatic hyperplasia with lower urinary tract symptoms; Z79.899 Other long term (current) drug therapy; N13.6 Pyonephrosis; Z79.84 Long term (current) use of oral hypoglycemic drugs; R26.9 Unspecified abnormalities of gait and mobility; I10 Essential (primary) hypertension